=== PATIENT | female | born 1955 | race Caucasian/White ===

== ENCOUNTER → 2016-08-07 | Outpatient (CLI) | payer BC ==
[~2016-08-07] MED LIST: ASPI-428 PO; ASPI-461 PO; ATOR-26 PO; ATR25 PO; B-CO1TAB73 PO; BUSP15TA70 PO; CARI350T28 PO; CHOL1000 PO; CLC100 PO; DICL1GEL28 TOP; FERR325T51 PO; FLV1 PO; FURO-85 PO; GEMF600T3 PO; GLIP-197 PO; HYDR-3785 PO; HYDR-3983 PO; INSDGI SC; INSDGIPEN SC; LABE100T16 PO; LBT100 PO; LIDOCAINE 3% TOP; LSN40 PO; LSX40 PO; MISCCAP80 PO; NIFE30TA83 PO; NRV/5 PO; NVLGI/PEN SC; OMEP40CA PO; OMEP40CA41 PO; PREG1CAP36 PO; SERT-234 PO; TRAZ100T29 PO; VITA400C3 PO; VTMD PO; ZLF/100 PO; [UNRECOGNIZED DRUG - CODE] TOP; melatonin PO; novalog
[2016-08-07 18:25] LABS: CHOLESTEROL/HDL RATIO 3.1
[2016-08-08 06:26] LABS: ESTIMATED AVERAGE GLUCOSE 177 mg/dl; HA1C FLAG Normal (Normal)
== END | disposition home or self-care (01) ==
LOC: C.LABMFLN 07:33
PROVIDERS: ATTEND Family Medicine
DX: E11.9 Type 2 diabetes mellitus without complications (principal); E11.42 Type 2 diabetes mellitus with diabetic polyneuropathy; E55.9 Vitamin D deficiency, unspecified; D64.9 Anemia, unspecified; N18.5 Chronic kidney disease, stage 5

== ENCOUNTER → 2016-09-22 | Outpatient (CLI) | payer BC ==
[2016-09-22 18:12] LABS: BASO % 0.7 %; BASO ABS # 0.07 K/uL (0-0.2); COMPLETE YES; EOS % 7.8 %; HEMATOCRIT 29.4 % (37-47); IG% 0.2 %; LYMPH % 20.4 %; LYMPH ABS # 1.94 K/uL (1.2-3.4); MEAN CELL VOLUME 85.7 fL (80-100); MEAN CORPUSCULAR HEMOGLOBIN 28.9 pg (25-34); MEAN CORPUSCULAR HGB CONC 33.7 g/dl (32-36); MONO % 7.5 %; NEUT % 63.4 %; PLATELET COUNT 303 K/uL (130-400); RED BLOOD COUNT 3.43 M/uL (4.2-5.4); WHITE BLOOD COUNT 9.49 K/uL (4.8-10.8)
[2016-09-22 19:07] LABS: ALB/GLOB RATIO 0.6 (0.9-2); ALKALINE PHOSPHATASE 93 U/L (45-117); ALT/SGPT 14 U/L (12-78); AST/SGOT 33 U/L (15-37); BLOOD UREA NITROGEN 48 mg/dl (7-18); BUN/CREATININE RATIO 9.2 (10-20); CALCIUM 8.3 mg/dl (8.5-10.1); CARBON DIOXIDE 29 mmol/L (21-32); CHLORIDE 101 mmol/L (98-107); GLUCOSE 88 mg/dl (70-99); POTASSIUM 4.5 mmol/L (3.5-5.1); SODIUM 137 mmol/L (136-145)
== END | disposition home or self-care (01) ==
LOC: C.LABMFLN 09:15
PROVIDERS: ATTEND Family Medicine
DX: T85.71XA Infection and inflammatory reaction due to peritoneal dialysis catheter, initial encounter (principal); K65.9 Peritonitis, unspecified; Y84.1 Kidney dialysis as the cause of abnormal reaction of the patient, or of later complication, without mention of misadventure at the time of the procedure

== ENCOUNTER → 2016-09-29 | Outpatient (CLI) | payer BC | END | disposition home or self-care (01) | LOC: C.LABMFLN 10:59 | PROVIDERS: ATTEND Family Medicine | DX: R19.7 Diarrhea, unspecified (principal) ==

== ENCOUNTER 2016-10-03 17:50 | Emergency (ER) | payer BC ==
[~2016-10-03] VITALS: Ht 170.2 cm; Wt 83.0 kg
[~2016-10-03 17:50] MED LIST changes: -ASPI-461 PO; -ATR25 PO; -B-CO1TAB73 PO; -CHOL1000 PO; -FLV1 PO; -INSDGIPEN SC; -LBT100 PO; -LSN40 PO; -LSX40 PO; -NRV/5 PO; -NVLGI/PEN SC; -OMEP40CA41 PO; -VITA400C3 PO; -VTMD PO; -ZLF/100 PO
[2016-10-03 18:04] VITALS: TEMP 36.8; Ht 170.2 cm; Wt 83.0 kg
[2016-10-03] MEDS ORDERED: HYDROmorphone INJ 0.5 MG/0.5 ML SYR IV STA ×2 (19:17→21:05)
--- NOTE | 2016-10-03 19:22 | EMERGENCY ROOM VISIT NOTE ---
History Report prepared by Khushbu: Alicja Anderson Under the Supervision of: Dr. Cata Rowan D.O. First contact with patient: 19:01 Chief Complaint: FLANK PAIN Stated Complaint: PAIN IN LEFT SIDE History of Present Illness The patient is a 61 year old female who presents to the Emergency Room with complaints of persistent left sided flank pain that started a few days ago but worsened this morning. She rates this pain a 7/10 in intensity. Associated symptoms include abdominal pain, headaches, and nausea. The patient receives peritoneal dialysis at home. She is currently prescribed a two week course of antibiotics to treat peritonitis. The patient was first evaluated in the [facility] where she was diagnosed with this infection. She was told to come back to the ED if her pain worsens. The patient also has a history of lithotripsy and stent placement secondary to kidney stones. She adds that she developed a blood clot by her kidney as the result of the stent placement procedure. The patient denies fevers, chills, chest pain, shortness of breath, or any additional associated symptoms. States this feels different from her peritonitis previously. No v/d. Still makes some small amount of urine. No change in color/odor. No hematuria. Source of History: patient Onset: a few days ago, worsened this morning Position: abdomen Symptom Intensity: 7/10 Timing: other (Persistent ) Modifying Factors (Worsening): other (None) Associated Symptoms: + abdominal pain, + headache, + nausea, No SOB, No chest pain, No chills, No fevers Review of Systems See HPI for pertinent positives & negatives. A total of 10 systems reviewed and were otherwise negative. Past Medical & Surgical Medical Problems: (1) Arthritis (2) Bronchitis (3) Diabetes (4) End stage renal disease (5) H/O blood clots (6) Kidney stone Surgical Problems: (1) H/O: hysterectomy (2) Hx of lithotripsy Family History FH: cancer FH: diabetes mellitus FH: heart disease FH: hypertension FH: kidney disease Social History Smoking Status: Former Smoker Alcohol Use: none Drug Use: none Marital Status: Housing Status: lives with significant other Occupation Status: unemployed Current/Historical Medications Scheduled Amlodipine Besylate (Amlodipine Besylate), 1 TAB PO DAILY Aspirin (Aspirin), 1 TAB PO DAILY Atorvastatin (Lipitor), 80 MG PO HS B-Complex W/ C & Folic Acid (Renal Vitamin 0.8 mg), 1 TAB PO DAILY Carisoprodol (Soma), 350 MG PO TID Ergocalciferol (Vitamin D), 1 TAB PO [id number] Folic Acid (Folic Acid), 1 TAB PO DAILY Furosemide (Furosemide), 1 TAB PO DAILY Glipizide (Glipizide Er), 1 TAB PO BID Hydrocodone/Acetaminophen 7.5MG/325MG ([place] 7.5MG/325MG), 2 TABS PO Q6H Hydroxyzine HCl (Hydroxyzine HCl), 1 TAB PO Q6H Insulin Glargine (Lantus Solostar), 35 UNITS SC HS Labetalol HCl (Labetalol HCl), 2 TAB PO BID Lisinopril (Lisinopril), 1 TAB PO DAILY Omeprazole (Prilosec), 1 TAB PO DAILY Pregabalin (Lyrica), 25 MG PO BID Probiotic Product (Probiotic), 1 CAP PO DAILY Sertraline HCl (Sertraline HCl), 2 TAB PO DAILY Trazodone Hcl (Trazodone), 200 MG PO HS PRN Vitamin E (Vitamin E 400 Iu), 400 INTER.UNIT PO DAILY Miscellaneous Medications Insulin Aspart (Novolog Flexpen), 1 DOSE SC Allergies Coded Allergies: Sulfa Antibiotics (Verified Allergy, Intermediate, BLISTERS IN MOUTH, 10/03) Tetracycline (Verified Allergy, Intermediate, BLISTERS IN MOUTH, 10/03/16) Adhesives (Verified Allergy, Mild, RASH, 10/03/16) Doxycycline (Verified Allergy, Unknown, mouth blisters, 10/03/16) Latex1 -Allergic Contact Dermititis (Verified Allergy, Unknown, UNKNOWN, ) PER PREOP ABX ORDER Physical Exam Vital Signs Date Time Temp Pulse Resp B/P Pulse Ox O2 Delivery O2 Flow Rate FiO2 10/03/16 21:22 74 18 167/70 99 10/03/16 20:36 73 18 159/78 98 Room Air 10/03/16 19:55 82 18 182/81 97 Room Air 10/03/16 18:04 36.8 90 16 130/68 96 Room Air Physical Exam GENERAL: alert, well appearing, well nourished, no distress, non-toxic EYE EXAM: normal conjunctiva, PERRL and EOM's grossly intact OROPHARYNX: no exudate, no erythema, lips, buccal mucosa, and tongue normal and mucous membranes are moist NECK: supple, no nuchal rigidity, no adenopathy, non-tender LUNGS: Clear to auscultation. Normal chest wall mechanics HEART: no murmurs, S1 normal and S2 normal ABDOMEN: PD catheter on left side of abdomen without drainage, erythema, or bleeding. abdomen soft, non-tender, normo-active bowel sounds, no masses, no rebound or guarding. BACK: Left flank pain noted. Back is symmetrical on inspection and there is no deformity, no CVA tenderness. SKIN: no rashes and no bruising UPPER EXTREMITIES: upper extremities are grossly normal. LOWER EXTREMITIES: No pitting edema. NEURO EXAM: Normal sensorium, cranial nerves II-XII [grossly] intact, normal speech, no [gross] weakness of arms, no [gross] weakness of legs. Medical Decision & Procedures ER Provider Diagnostic Interpretation: Xray results per the radiologist and my interpretation. Other results have been interpreted by the radiologist and reviewed by me. CHEST ONE VIEW PORTABLE CLINICAL HISTORY: left flank pain pain COMPARISON STUDY: 05/16/2013 FINDINGS: Moderate cardiac megaly. Lungs are clear. Diaphragms smooth. IMPRESSION: Moderate cardiomegaly. Otherwise negative study Electronically signed by: Garry Ann M.D. 10/03/2016 8:24 PM Dictated Date/Time: 10/03/2016 8:23 PM ABDOMEN AND PELVIS CT WITHOUT CONTRAST CT DOSE: 516.40 mGy.cm HISTORY: Flank pain left flank pain TECHNIQUE: Multiaxial CT images of the abdomen and pelvis were performed without contrast. COMPARISON STUDY: 03/01/2016 FINDINGS: Lung bases are clear. Trace amount of intraperitoneal air most likely the bases of the patient's dialysis catheter. Liver appears be uniform. Prior cholecystectomy. Spleen is slightly prominent but is stable from the prior exam. Fatty replacement of the pancreas. Cortical scarring of the kidneys bilaterally. Fullness of the right renal collecting system on the prior study is no longer appreciated. Bilateral renal arterial stents are present. Postoperative changes to the lumbar spine are stable. Bowel pattern is nonobstructive. There is no evidence for an obstructing urinary tract calculus. Bowel pattern again is unremarkable. There is component of mild chronic sigmoid diverticulosis. IMPRESSION: 1. Mild chronic sigmoid diverticulosis. 2. No evidence for diverticulitis. 3. Chronic and postoperative changes unaltered from the prior study. Electronically signed by: Garry Ann M.D. 10/03/2016 8:21 PM Dictated Date/Time: 10/03/2016 8:14 PM Laboratory Results 10/03/16 19:36 Red Blood Count 3.08, Mean Corpuscular Volume 88.0, Mean Corpuscular Hemoglobin 28.2, Mean Corpuscular Hemoglobin Concent 32.1, Mean Platelet Volume 9.2, Neutrophils (%) (Auto) 56.2, Lymphocytes (%) (Auto) 26.9, Monocytes (%) (Auto) 7.4, Eosinophils (%) (Auto) 8.1, Basophils (%) (Auto) 1.0, Neutrophils # (Auto) 4.03, Lymphocytes # (Auto) 1.93, Monocytes # (Auto) 0.53, Eosinophils # (Auto) 0.58, Basophils # (Auto) 0.07 10/03/16 19:36 Test 10/03/16 19:30 10/03/16 19:36 Urine Color YELLOW Urine Appearance CLEAR (CLEAR) Urine pH 6.5 (4.5-7.5) Urine Specific [place] 1.021 (1.000-1.030) Urine Protein 1+ (NEG) Urine Glucose (UA) 2+ (NEG) Urine Ketones NEG (NEG) Urine Occult Blood NEG (NEG) Urine Nitrite NEG (NEG) Urine Bilirubin NEG (NEG) Urine Urobilinogen NEG (NEG) Urine Leukocyte Esterase TRACE (NEG) Urine WBC (Auto) 1-5 /hpf (0-5) Urine RBC (Auto) 0-4 /hpf (0-4) Urine Hyaline Casts (Auto) 0 /lpf (0-5) Urine Epithelial Cells (Auto) >30 /lpf (0-5) Urine Bacteria (Auto) NEG (NEG) White Blood Count 7.17 K/uL (4.8-10.8) Red Blood Count 3.08 M/uL (4.2-5.4) Hemoglobin 8.7 g/dL (12.0-16.0) Hematocrit 27.1 % (37-47) Mean Corpuscular Volume 88.0 fL (80-100) Mean Corpuscular Hemoglobin 28.2 pg (25-34) Mean Corpuscular Hemoglobin Concent 32.1 g/dl (32-36) Platelet Count 271 K/uL (130-400) Mean Platelet Volume 9.2 fL (7.4-10.4) Neutrophils (%) (Auto) 56.2 % Lymphocytes (%) (Auto) 26.9 % Monocytes (%) (Auto) 7.4 % Eosinophils (%) (Auto) 8.1 % Basophils (%) (Auto) 1.0 % Neutrophils # (Auto) 4.03 K/uL (1.4-6.5) Lymphocytes # (Auto) 1.93 K/uL (1.2-3.4) Monocytes # (Auto) 0.53 K/uL (0.11-0.59) Eosinophils # (Auto) 0.58 K/uL (0-0.5) Basophils # (Auto) 0.07 K/uL (0-0.2) RDW Standard Deviation 48.2 fL (36.4-46.3) RDW Coefficient of Variation 15.2 % (11.5-14.5) Immature Granulocyte % (Auto) 0.4 % Immature Granulocyte # (Auto) 0.03 K/uL (0.00-0.02) Nucleated RBC Absolute Count (auto) 0.02 K/uL (0-0) Nucleated Red Blood Cells % 0.2 % Polychromasia 1+ Anisocytosis PRESENT Anion Gap 9.0 mmol/L (3-11) Est Creatinine Clear Calc Drug Dose 20.7 ml/min Estimated GFR () 17.4 Estimated GFR (Non- 15.0 BUN/Creatinine Ratio 17.7 (10-20) Calcium Level 8.2 mg/dl (8.5-10.1) Total Bilirubin 0.2 mg/dl (0.2-1) Aspartate Amino Transf (AST/SGOT) 22 U/L (15-37) Alanine Aminotransferase (ALT/SGPT) 12 U/L (12-78) Alkaline Phosphatase 63 U/L (45-117) Total Protein 7.4 gm/dl (6.4-8.2) Albumin 3.2 gm/dl (3.4-5.0) Globulin 4.2 gm/dl (2.5-4.0) Albumin/Globulin Ratio 0.8 (0.9-2) Date/Time Source Procedure Growth Status 10/03/16 19:30 Urine , Clean Catch Urine Culture - Final MORE THAN THREE TYPES OF ORGANISMS CT... Complete Laboratory results per my review. Medications Administered Medications (Trade) Dose Ordered Sig/April Route Start Time Stop Time Status Last Admin Dose Admin Hydromorphone HCl (Dilaudid Inj) 0.5 mg NOW STAT IV 10/03/16 19:17 10/03/16 19:20 DC 10/03/16 19:52 0.5 MG Hydromorphone HCl (Dilaudid Inj) 1 mg NOW STAT IV 10/03/16 21:05 10/03/16 21:06 DC 10/03/16 21:10 1 MG ED Course 1905: The patient was evaluated in room C7. A complete history and physical exam was performed. 1916: Ordered Dilaudid Injection 0.5 mg IV. 2056: Upon reevaluation, the patient is still experiencing mild amounts of pain but is feeling better overall. I updated the patient on tonight's results. 2104: Ordered Dilaudid Injection 1 mg IV. 2105: I reviewed the patient's case with Dr. Sanabria (Nephrology). She recommends the patient follow up closely in the outpatient office. Medical Decision Differential diagnoses includes but is not limited to gastritis, peptic ulcer disease, GERD, gallbladder disease, pancreatitis, small bowel obstruction, acute coronary syndrome, pericarditis, ischemic bowel, irritable bowel disease, irritable bowel syndrome, appendicitis, diverticulitis, malignancy, hernia, urinary tract infection, torsion, /ectopic , perforation, trauma, infectious. Pt well appearing throughout. Has chronic pain meds at home. No change in labs , CKD noted without electrolyte abnormalities. Doubt bacteremia/sepsis. No obstruction or other anatomic abnormalities noted. VS stable. Doubt cardiac or pulmonary pathology. No evidence of sx of acute Gi pathology. Pt aware of all results. Discussed with nephrology. Agrees with plan for outpt f/u. Continued PD at home. No other changes at this time. Discussed sx to watch/ return for, she verbalized understanding and was agreeable with plan. Consults Time Called: [phone] Consulting Physician: Dr. Sanabria (Nephrology) Returned Call: [phone] I reviewed the patient's case with Dr. Sanabria (Nephrology). She recommends the patient follow up closely in the outpatient office. Impression Primary Impression: Left flank pain Additional Impression: Chronic kidney disease Scribe Attestation The scribe's documentation has been prepared under my direction and personally reviewed by me in its entirety. I confirm that the note above accurately reflects all work, treatment, procedures, and medical decision making performed by me. Departure Information Dispostion Home / Self-Care Referrals Nando Meredith M.D. (PCP) Forms HOME CARE DOCUMENTATION FORM, IMPORTANT VISIT INFORMATION Patient Instructions My [facility] Additional Instructions Please call and follow-up with your family doctor on Thursday and call your kidney doctor to follow-up also. Continue your regular medicines and dialysis per normal. If you have any worsening pain, develop fevers, vomiting, chest pain, trouble breathing, diarrhea, your catheter isn't functioning normally, or you have any other concerns, please return to the emergency room immediately. Problem Qualifiers Additional Impression: Chronic kidney disease Chronic kidney disease stage: unspecified stage Qualified Codes: N18.9 - Chronic kidney disease, unspecified
[2016-10-03 20:10] LABS: BASO ABS # 0.07 K/uL (0-0.2); EOS % 8.1 %; HEMATOCRIT 27.1 % (37-47); IG% 0.4 %; LYMPH % 26.9 %; LYMPH ABS # 1.93 K/uL (1.2-3.4); MEAN CORPUSCULAR HEMOGLOBIN 28.2 pg (25-34); MEAN CORPUSCULAR HGB CONC 32.1 g/dl (32-36); MEAN PLATELET VOLUME 9.2 fL (7.4-10.4); MONO % 7.4 %; NEUT % 56.2 %; PLATELET COUNT 271 K/uL (130-400); RED BLOOD COUNT 3.08 M/uL (4.2-5.4); WHITE BLOOD COUNT 7.17 K/uL (4.8-10.8)
--- NOTE | 2016-10-03 20:23 | DIAGNOSTIC IMAGING REPORT ---
ABDOMEN AND PELVIS CT WITHOUT CONTRAST CT DOSE: 516.40 mGy.cm HISTORY: Flank pain left flank pain TECHNIQUE: Multiaxial CT images of the abdomen and pelvis were performed without contrast. COMPARISON STUDY: 03/01/2016 FINDINGS: Lung bases are clear. Trace amount of intraperitoneal air most likely the bases of the patient's dialysis catheter. Liver appears be uniform. Prior cholecystectomy. Spleen is slightly prominent but is stable from the prior exam. Fatty replacement of the pancreas. Cortical scarring of the kidneys bilaterally. Fullness of the right renal collecting system on the prior study is no longer appreciated. Bilateral renal arterial stents are present. Postoperative changes to the lumbar spine are stable. Bowel pattern is nonobstructive. There is no evidence for an obstructing urinary tract calculus. Bowel pattern again is unremarkable. There is component of mild chronic sigmoid diverticulosis. IMPRESSION: 1. Mild chronic sigmoid diverticulosis. 2. No evidence for diverticulitis. 3. Chronic and postoperative changes unaltered from the prior study. Electronically signed by: Garry Ann M.D. 10/03/2016 8:21 PM Dictated Date/Time: 10/03/2016 8:14 PM
[2016-10-03 20:25] LABS: URINE APPEARANCE CLEAR (CLEAR); URINE BILIRUBIN NEG (NEG); URINE COLOR YELLOW; URINE EPITHELIAL CELL AUTO >30 /lpf (0-5); URINE NITRITE NEG (NEG); URINE PH 6.5 (4.5-7.5); URINE SPECIFIC GRAVITY 1.021 (1.000-1.030); UROBILINOGEN NEG (NEG); ZZUR CULT IF INDIC CLEAN CATCH NO
--- NOTE | 2016-10-03 20:26 | DIAGNOSTIC IMAGING REPORT ---
CHEST ONE VIEW PORTABLE CLINICAL HISTORY: left flank pain pain COMPARISON STUDY: 05/16/2013 FINDINGS: Moderate cardiac megaly. Lungs are clear. Diaphragms smooth. IMPRESSION: Moderate cardiomegaly. Otherwise negative study Electronically signed by: Garry Ann M.D. 10/03/2016 8:24 PM Dictated Date/Time: 10/03/2016 8:23 PM
[2016-10-03 20:27] LABS: BUN/CREATININE RATIO 17.7 (10-20); CALCIUM 8.2 mg/dl (8.5-10.1); CREATININE 3.2 mg/dl (0.60-1.20); POTASSIUM 4.1 mmol/L (3.5-5.1)
[2016-10-03 20:29] LABS: MANUAL MICROSCOPIC REQUIRED? NO; REVIEW REQ? NO
[2016-10-03 20:30] LABS: ALB/GLOB RATIO 0.8 (0.9-2)
[2016-10-03 20:32] LABS: ANISOCYTOSIS PRESENT; COMPLETE YES; POLYCHROMASIA 1+
[2016-10-03] MEDS ORDERED: OMEP40CA41 PO (21:00)
[2016-10-03] MEDS ORDERED: NVLGI/PEN SC (21:00)
[2016-10-03] MEDS ORDERED: LBT100 PO (21:00)
[2016-10-03] MEDS ORDERED: VTMD PO (21:00)
[2016-10-03] MEDS ORDERED: INSDGIPEN SC (21:00)
[2016-10-03] MEDS ORDERED: FLV1 PO (21:00)
[2016-10-03] MEDS ORDERED: LSN40 PO (21:00)
[2016-10-03] MEDS ORDERED: NRV/5 PO (21:00)
[2016-10-03] MEDS ORDERED: ZLF/100 PO (21:00)
[2016-10-03] MEDS ORDERED: LSX40 PO (21:00)
[2016-10-03] MEDS ORDERED: ASPI-461 PO (21:00)
[2016-10-03] MEDS ORDERED: ATR25 PO (21:00)
[2016-10-03] MEDS ORDERED: CHOL1000 PO (21:03)
[2016-10-03] MEDS ORDERED: B-CO1TAB73 PO (21:03)
[2016-10-03] MEDS ORDERED: HYDR-3983 PO (21:03)
[2016-10-03] MEDS ORDERED: VITA400C3 PO (21:03)
[2016-10-03 21:22] VITALS: BP 167/70; PULSE 74; O2SAT 99
== END 2016-10-03 21:23 | disposition home or self-care (01) ==
LOC: C.EDB 17:51 → C.EDC 21:23
DX: R10.9 Unspecified abdominal pain (principal); N18.6 End stage renal disease; R51 Headache; R11.0 Nausea; Z99.2 Dependence on renal dialysis; E11.9 Type 2 diabetes mellitus without complications; M19.90 Unspecified osteoarthritis, unspecified site; Z79.4 Long term (current) use of insulin; Z79.82 Long term (current) use of aspirin; Z79.899 Other long term (current) drug therapy; Z86.2 Personal history of diseases of the blood and blood-forming organs and certain disorders involving the immune mechanism; Z87.442 Personal history of urinary calculi; Z87.891 Personal history of nicotine dependence; Z82.49 Family history of ischemic heart disease and other diseases of the circulatory system; Z83.3 Family history of diabetes mellitus; Z84.1 Family history of disorders of kidney and ureter

== ENCOUNTER → 2017-01-05 | Outpatient (CLI) | payer BC ==
[~2017-01-05] MED LIST changes: -ASPI-428 PO; +ASPI-461 PO; +ATR25 PO; +B-CO1TAB73 PO; -BUSP15TA70 PO; -CLC100 PO; -DICL1GEL28 TOP; -FERR325T51 PO; +FLV1 PO; -FURO-85 PO; -GEMF600T3 PO; -HYDR-3785 PO; -INSDGI SC; +INSDGIPEN SC; -LABE100T16 PO; +LBT100 PO; -LIDOCAINE 3% TOP; +LSN40 PO; +LSX40 PO; -NIFE30TA83 PO; +NRV/5 PO; +NVLGI/PEN SC; -OMEP40CA PO; +OMEP40CA41 PO; -SERT-234 PO; +VITA400C3 PO; +VTMD PO; +ZLF/100 PO; -[UNRECOGNIZED DRUG - CODE] TOP; -melatonin PO; -novalog
[2017-01-05 18:16] LABS: ALT/SGPT 25 U/L (12-78); TRIGLYCERIDES 246 mg/dl (0-150)
[2017-01-06 06:08] LABS: ESTIMATED AVERAGE GLUCOSE 166 mg/dl; HA1C FLAG Normal (Normal)
== END | disposition home or self-care (01) ==
LOC: C.LABMFLN 13:43
PROVIDERS: ATTEND Family Medicine
DX: E78.5 Hyperlipidemia, unspecified (principal); E11.9 Type 2 diabetes mellitus without complications; N18.5 Chronic kidney disease, stage 5

== ENCOUNTER → 2017-04-02 | Outpatient (CLI) | payer BC ==
[2017-04-02 18:19] LABS: URINE APPEARANCE TURBID (CLEAR); URINE BILIRUBIN NEG (NEG); URINE COLOR YELLOW; URINE EPITHELIAL CELL AUTO >30 /lpf (0-5); URINE NITRITE POS (NEG); URINE SPECIFIC GRAVITY 1.017 (1.000-1.030); UROBILINOGEN NEG (NEG); ZZUR CULT IF INDIC CLEAN CATCH YES
[2017-04-02 18:23] LABS: MANUAL MICROSCOPIC REQUIRED? NO; REVIEW REQ? NO
== END | disposition home or self-care (01) ==
LOC: C.LABMFLN 16:41
PROVIDERS: ATTEND Family Medicine
DX: R10.9 Unspecified abdominal pain (principal)

== ENCOUNTER 2017-05-31 13:01 | Inpatient (IN) | payer BC, OTHER ==
[~2017-05-31] VITALS: Ht 172.7 cm; Wt 81.6 kg
[2017-05-31 15:30] VITALS: BP 111/68; PULSE 65; TEMP 36.4; O2SAT 97; BMI 26.4
[2017-05-31] MEDS ORDERED: ACETAMINOPHEN 325 MG TAB PO PRN (16:30)
[2017-05-31] MEDS ORDERED: ONDANSETRON INJ 2 MG/ML 2 ML VIAL IV PRN (16:30)
[2017-05-31 18:20] LABS: HEMATOCRIT 31.1 % (37-47); HEMOGLOBIN 10.2 g/dL (12.0-16.0); MEAN CELL VOLUME 88.6 fL (80-100); MEAN CORPUSCULAR HEMOGLOBIN 29.1 pg (25-34); MEAN CORPUSCULAR HGB CONC 32.8 g/dl (32-36); MEAN PLATELET VOLUME 9.6 fL (7.4-10.4); PLATELET COUNT 243 K/uL (130-400); RED CELL DISTRIBUTION WIDTH CV 15.2 % (11.5-14.5); RED CELL DISTRIBUTION WIDTH SD 49.8 fL (36.4-46.3); WHITE BLOOD COUNT 6.43 K/uL (4.8-10.8)
[2017-05-31 18:32] LABS: PTT PATIENT 24.8 SECONDS (21.0-31.0)
[2017-05-31] MEDS ORDERED: MoRPHine SULFATE 4 MG/ML 1 ML CARP\\VIAL IV PRN (19:45)
[2017-05-31 20:00] VITALS: O2SAT 97
--- NOTE | 2017-05-31 20:17 | Nephrology Consultation ---
Nephrology Consultation Date & Providers Date of Consultation: May 31, 2017. Primary Care Provider: Nando Meredith M.D. Referring Provider: Reason for Consultation ESRD on NCCPD History of Present Illness Mrs. Rodriguez is a 62 year old white female who is seen at the request of Dr. Lofton to provide nocturnal peritoneal dialysis during her hospitalization. Medical records in the EMR were reviewed and are summarized as follows: Mrs. Rodriguez has a longstanding h/o arterial HTN. Evaluation revealed the presence of JASEN. In 02/27 she underwent bilateral renal artery stenting. This was complicated by L subcapsular hematoma. Her kidneys were notably atrophic at that time and she developed progressive renal insufficiency. In 01/28 she underwent CAPD catheter insertion and creation of a L upper arm AVF by Dr. Quigley in [place]. She later required transposition of the venous limb of her AVF. Since 03/01 Mrs. Rodriguez has been on NCCPD therapy (EDW 79.5 kg, 4 exchanges/night, 90 min dwell time, 2500 cc fill volume, 2.5% delflex). Her [place] Worker is Dr. Sanabria. She denies any complications with her PD regimen. Over the last five days Mrs. Rodriguez has been experiencing extreme weakness. She has fallen several times. She denies fever, angina, palpitations or seizure. She reports that her SBP at home has been 120 - 140 mm HG. Her blood sugar however has been very labile ranging anywhere from 300 down to 50. Mrs. Rodriguez was admitted to [facility] yesterday for evaluation. Her transfer set was changed and she was dialyzed while there. This morning she was seen by Dr. Aguila and found to have a weak thrill from her AVF. She was subsequently transferred to [facility] for vascular surgery evaluation in the am. Past Medical/Surgical History Medical: # ESRD on NCCPD. Active on [facility] list at [facility] # AODM # HTN # JASEN s/p bilateral [employer] ANALYST w/ stenting 02/27 # ASCVD - cath 05/30 with < 30% stenosis in multiple vessels Surgical: # L arm brachiocephalic AVF 01/28 # Transposition of venous limb AVF # PD catheter # Bilateral renal artery stenting Allergies Coded Allergies: Sulfa Antibiotics (Verified Allergy, Intermediate, BLISTERS IN MOUTH, 10/03) Tetracycline (Verified Allergy, Intermediate, BLISTERS IN MOUTH, 10/03/16) Adhesives (Verified Allergy, Mild, RASH, 10/03/16) Doxycycline (Verified Allergy, Unknown, mouth blisters, 10/03/16) Latex1 -Allergic Contact Dermititis (Verified Allergy, Unknown, UNKNOWN, ) PER PREOP ABX ORDER Inpatient Medications Current Inpatient Medications Medications (Trade) Dose Ordered Sig/April Route Start Time Stop Time Status Last Admin Dose Admin Heparin Sodium (Porcine) (Heparin Sq 5000 Unit/0.5ml) 5,000 unit Q8H SQ 05/31/17 20:30 06/30/17 20:29 Acetaminophen (Tylenol Tab) 650 mg Q4H PRN PO 05/31/17 16:30 06/30/17 16:29 Ondansetron HCl (Zofran Inj) 4 mg Q6H PRN IV 05/31/17 16:30 06/30/17 16:29 Insulin Aspart (novoLOG ASPART) SLIDING SCALE G... ACHS SC 05/31/17 21:00 06/30/17 20:59 Acetaminophen/ Hydrocodone Bitart ([place] 7.5/325 Tab) 1 tab Q4 PRN PO 05/31/17 18:30 06/14/17 18:29 Amlodipine Besylate (Norvasc Tab) 5 mg DAILY PO 06/01/17 09:00 07/01/17 08:59 Aspirin (Ecotrin Tab) 81 mg DAILY PO 06/01/17 09:00 07/01/17 08:59 Atorvastatin Calcium (Lipitor Tab) 80 mg HS PO 05/31/17 21:00 06/30/17 20:59 Carisoprodol (Soma Tab) 350 mg TID PO 05/31/17 21:00 06/30/17 20:59 Folic Acid (Folvite Tab) 1 mg DAILY PO 06/01/17 09:00 07/01/17 08:59 Furosemide (Lasix Tab) 40 mg DAILY PO 06/01/17 09:00 07/01/17 08:59 Hydroxyzine HCl (Vistaril Tab) 25 mg Q6H PO 05/31/17 19:00 06/30/17 18:59 Insulin Glargine (Lantus Solostar Pen) 35 units HS SC 05/31/17 21:00 06/30/17 20:59 Labetalol HCl (Normodyne Tab) 200 mg BID PO 05/31/17 21:00 06/30/17 20:59 Lisinopril (Zestril Tab) 40 mg DAILY PO 06/01/17 09:00 07/01/17 08:59 Pregabalin (Lyrica Cap) 25 mg BID PO 05/31/17 21:00 06/30/17 20:59 Sertraline HCl (Zoloft Tab) 200 mg DAILY PO 06/01/17 09:00 07/01/17 08:59 UNV Trazodone HCl (Desyrel Tab) 200 mg HS PO 05/31/17 21:00 06/30/17 20:59 UNV [id number] Acetate (Vitamin E Cap) 400 interunit DAILY PO 06/01/17 09:00 07/01/17 08:59 UNV Non-Formulary Medication (Omeprazole (Prilosec)) 1 tab DAILY PO 06/01/17 09:00 07/01/17 08:59 UNV Fentanyl (Duragesic Patch) 12 mcg Q72H TD 05/31/17 19:30 06/14/17 19:29 UNV Fentanyl (Duragesic Patch) 25 mcg Q72H TD 05/31/17 19:30 06/14/17 19:29 UNV Miscellaneous (Fentanyl Patch Remove & Waste) 1 ea Q3D N/A 06/03/17 19:30 07/03/17 19:29 UNV Miscellaneous Information (Check Fentanyl Patch Placement) 1 ea QS N/A 06/01/17 00:00 07/01/17 00:00 UNV Miscellaneous (Fentanyl Patch Remove & Waste) 1 ea Q3D N/A 06/03/17 19:30 07/03/17 19:29 UNV Miscellaneous Information (Check Fentanyl Patch Placement) 1 ea QS N/A 06/01/17 00:00 07/01/17 00:00 UNV Morphine Sulfate (MoRPHine SULFATE INJ) 4 mg Q4 PRN IV 05/31/17 19:45 06/14/17 19:44 UNV Morphine Sulfate (MoRPHine SULFATE INJ) 2 mg Q4 PRN IV 05/31/17 19:45 06/14/17 19:44 UNV Family History FH: cancer FH: diabetes mellitus FH: heart disease FH: hypertension FH: kidney disease Negative for CKD / ESRD Social History Smoking Status: Former Smoker Drug Use: none Marital Status: Occupation: unemployed . Resides in [place], [place]. Disabled . Former smoker (quit 5 years ago). Review of Systems Constitutional: No fever Respiratory: No cough Cardiovascular: No chest pain Abdomen: No pain, No nausea, No vomiting Endocrine: + fatigue A complete review of systems was performed. Pertinent positives are noted above. All other systems are negative. Physical Exam Date Time Temp Pulse Resp B/P (MAP) Pulse Ox O2 Delivery O2 Flow Rate FiO2 05/31/17 16:00 Room Air 05/31/17 15:30 36.4 65 18 111/68 97 Room Air General Appearance: no apparent distress Head: normocephalic, atraumatic Eyes: PERRL, EOMI Neck: supple, no carotid bruits Respiratory/Chest: lungs clear, no respiratory distress Cardiovascular: regular rate, rhythm, no murmur Abdomen/GI: normal bowel sounds, non tender, soft, + pertinent finding (PD catheter w/ clean dry dressing in place) Extremities/Musculoskelatal: no calf tenderness, no pedal edema Neurologic/Psych: alert, oriented x 3 Laboratory Results Last 24 Hours Test 05/31/17 16:35 05/31/17 17:49 Bedside Glucose 174 mg/dl White Blood Count 6.43 K/uL Red Blood Count 3.51 M/uL Hemoglobin 10.2 g/dL Hematocrit 31.1 % Mean Corpuscular Volume 88.6 fL Mean Corpuscular Hemoglobin 29.1 pg Mean Corpuscular Hemoglobin Concent 32.8 g/dl RDW Standard Deviation 49.8 fL RDW Coefficient of Variation 15.2 % Platelet Count 243 K/uL Mean Platelet Volume 9.6 fL Prothrombin Time 10.5 SECONDS Prothromb Time International Ratio 1.0 Activated Partial Thromboplast Time 24.8 SECONDS Partial Thromboplastin Ratio 1.0 Impression # Weakness w/ recurrent fall # Hemodynamically stable and 2 kg above dry weight at this time # ESRD due to vascular disease and HTN on NCCPD # L upper arm AVF with weak thrill / bruit # AODM # HTN # h/o ASCVD\ # Former smoker Recommendations END STAGE RENAL DISEASE: -- Will provide NCCPD therapy tonight according to chronic outpatient orders -- Patient is 2 kg above dry wt and hemodynamically stable. Will use 2.5% delflex -- Obtain PRP in am VASCULAR ACCESS: -- I have spoken w/ Dr. Mclaughlin this evening. He will assess patient's access in am HYPERTENSION: -- Will order orthostatic bp & pulse x 3 days -- Continue outpatient bp regimen of Labetalol, Amlodipine and Lisinopril DM: -- Monitor BSG. Patient reports h/o labile blood glucose
[2017-05-31 20:23] LABS: CALCIUM 8.2 mg/dl (8.5-10.1); POTASSIUM 4.9 mmol/L (3.5-5.1)
[2017-05-31 20:26] LABS: CREATININE 6.29 mg/dl (0.60-1.20)
[2017-05-31] MEDS: HYDROCODONE/ACETAMINOPHEN 7.5/325MG TAB PO PRN (20:44)
[2017-05-31 20:45] VITALS: BP 111/68; TEMP 37.1
[2017-05-31] MEDS: HEPARIN SOD 5000 UNIT/0.5 ML CARP SQ SCH (20:47)
[2017-05-31] MEDS ORDERED: GLUCOSE 40% GEL 15 GM TUBE PO PRN (21:15)
[2017-05-31] MEDS ORDERED: GLUCOSE 10 TABS/TUBE PO PRN (21:15)
[2017-05-31] MEDS ORDERED: DEXTROSE 50% 50 ML SYR IV PRN (21:15)
[2017-05-31] MEDS ORDERED: GLUCAGON FOR INJ 1 MG VIAL SQ PRN (21:15)
[2017-05-31] MEDS: hydrOXYzine HCL 25 MG TAB PO SCH (21:39)
[2017-05-31] MEDS: TRAZODONE HCL 100 MG TAB PO SCH (21:40)
[2017-05-31] MEDS: ATORVASTATIN 40 MG TAB PO SCH (21:40)
[2017-05-31] MEDS: LABETALOL HCL 100 MG TAB PO SCH (21:41)
[2017-05-31] MEDS: CARISOPRODOL 350 MG TAB PO SCH (21:41)
[2017-05-31] MEDS: PREGABALIN 25MG CAP PO SCH (21:44)
[2017-05-31] MEDS: INSULIN GLARGINE SOLOSTAR 100 UNITS/ML 3 ML PEN SC SCH (21:47)
[2017-05-31] MEDS: INSULIN ASPART 100 UNITS/ML 3 ML PEN SC SCH (21:47)
[2017-05-31] MEDS: MoRPHine SULFATE 2 MG/ML CARP IV PRN (21:55)
--- NOTE | 2017-05-31 22:33 | History and Physical ---
History & Physical Date & Time of Service: May 31, 2017 at 22:14 Chief Complaint: Av Fistula Failure Primary Care Physician: Nando Meredith M.D. History of Present Illness Source: patient, hospital records 62 yo female with a history of ESRD on peritoneal dialysis for the past 15 months, was transferred to [facility] from [place] because there was no thrill in her left UE fistula. She has the fistula in place in case she would get an infection with PD and she would need temporary HD. She says that she feels her left arm everyday for a thrill and she felt it two days ago and it was present. This morning, the patient did not have thrill. The solar installation foreman who was rounding on her discovered this as well and recommended transfer to [facility] to be seen by Dr. Mclaughlin who typically performs her vascular surgeries. The patient was admitted to [facility] the day before due to 8 separate falls the past week. The patient has never had frequent falls and typically is steady on her feet. She described the episodes of her legs just giving out. Sometimes she will have some warning signs of light headedness a few moments before she falls. The last time she fell she struck the back of her head. A CT was negative for hematoma. In the ED at [place] she was hypotensive and hypoglycemic. She was surprised by this because she never has these symptoms. She had been eating and drinking well. Performs peritoneal dialysis at her home every night, no changes in her regimen and no missed doses. She had no erythema around the skin of her PD, no abdominal pain, no fevers. After fluid resuscitation and glucose administration, her blood pressure and sugars stabilized in less than 24 hours. She did not have any falls while hospitalized. The hospitalist felt she was stable for discharge to home but then it was discovered that she did not have a thrill or bruit in her fistula so urgent transfer was recommended. Past Medical/Surgical History Peritoneal dialysis Severe lower back pain, chronic, s/p three separate surgeries HTN Depression Insomnia Medical Problems: (1) Arthritis Status: Chronic (2) Bronchitis Status: Resolved (3) Diabetes Status: Chronic (4) End stage renal disease Status: Chronic (5) H/O blood clots Status: Resolved (6) Kidney stone Status: Resolved Surgical Problems: (1) H/O: hysterectomy Status: Resolved (2) Hx of lithotripsy Status: Resolved Family History FH: cancer FH: diabetes mellitus FH: heart disease FH: hypertension FH: kidney disease Social History Smoking Status: Former Smoker Drug Use: none Marital Status: Occupational Status: unemployed Immunizations History of Influenza Vaccine: Yes Influenza Vaccine Date: Jun 14, 2013 History of Tetanus Vaccine?: Yes Tetanus Immunization Date: Jun 14, 2013 History of Pneumococcal: No History of Hepatitis B Vaccine: No Allergies Coded Allergies: Sulfa Antibiotics (Verified Allergy, Intermediate, BLISTERS IN MOUTH, 10/03) Tetracycline (Verified Allergy, Intermediate, BLISTERS IN MOUTH, 10/03/16) Adhesives (Verified Allergy, Mild, RASH, 10/03/16) Doxycycline (Verified Allergy, Unknown, mouth blisters, 10/03/16) Latex1 -Allergic Contact Dermititis (Verified Allergy, Unknown, UNKNOWN, ) PER PREOP ABX ORDER Home Medications Scheduled Amlodipine Besylate (Amlodipine Besylate), 1 TAB PO DAILY Aspirin (Aspirin), 1 TAB PO DAILY Atorvastatin (Lipitor), 80 MG PO HS B-Complex W/ C & Folic Acid (Renal Vitamin 0.8 mg), 1 TAB PO DAILY Carisoprodol (Soma), 350 MG PO TID Ergocalciferol (Vitamin D), 1 TAB PO [id number] Folic Acid (Folic Acid), 1 TAB PO DAILY Furosemide (Furosemide), 1 TAB PO DAILY Glipizide (Glipizide Er), 1 TAB PO BID Hydrocodone/Acetaminophen 7.5MG/325MG ([place] 7.5MG/325MG), 2 TABS PO Q6H Hydroxyzine HCl (Hydroxyzine HCl), 1 TAB PO Q6H Insulin Glargine (Lantus Solostar), 35 UNITS SC HS Labetalol HCl (Labetalol HCl), 2 TAB PO BID Lisinopril (Lisinopril), 1 TAB PO DAILY Omeprazole (Prilosec), 1 TAB PO DAILY Pregabalin (Lyrica), 25 MG PO BID Probiotic Product (Probiotic), 1 CAP PO DAILY Sertraline HCl (Sertraline HCl), 2 TAB PO DAILY Trazodone Hcl (Trazodone), 200 MG PO HS PRN Vitamin E (Vitamin E 400 Iu), 400 INTER.UNIT PO DAILY Miscellaneous Medications Insulin Aspart (Novolog Flexpen), 1 DOSE SC Review of Systems Constitutional: + weakness, + fatigue, No fever, No chills, No sweats, No weight loss, No problem reported Eyes: No worsening of vision, No eye pain, No redness, No discharge, No diplopia, No problem reported ENT: No hearing loss, No unusual epistaxis, No nasal symptoms, No sore throat, No tinnitus, No dental problems, No trouble swallowing, No problem reported Respiratory: No cough, No sputum, No wheezing, No shortness of breath, No dyspnea on exertion, No dyspnea at rest, No hemoptysis, No problem reported Cardiovascular: No chest pain, No orthopnea, No PND, No edema, No claudication , No palpitations, No problem reported Abdomen: No pain, No nausea, No vomiting, No diarrhea, No constipation, No GI bleeding, No problem reported Musculoskeletal: + joint pain (low back, chronic), + muscle pain (low back), No swelling, No calf pain, No problem reported Genitourinary - Female: No dysuria, No urinary frequency, No urinary urgency, No urinary incontinence, No urinary retention, No hematuria Neurologic: + weakness, + problem reported (frequent falls at home), No memory loss, No paralysis, No numbness/tingling, No vertigo, No balance problems Psychiatric: + depression symptoms, + insomnia, No anhedonism, No anxiety, No substance abuse, No problem reported Endocrine: No fatigue, No excessive thirst, No excessive urination, No problem reported Hematologic / Lymphatic: No abnormal bleeding/bruising, No clotting problems, No swollen lymph nodes, No night sweats, No problem reported Integumentary: No rash, No itch, No new/changing skin lesions, No color change , No bleeding, No problem reported Allergic / Immunologic: No environmental allergies, No seasonal allergies, No pet sensitivities, No food allergies, No hives, No frequent infections, No poor healing, No prolonged convalescence, No problem reported Physical Exam Vital Signs Date Time Temp Pulse Resp B/P (MAP) Pulse Ox O2 Delivery O2 Flow Rate FiO2 05/31/17 20:45 37.1 111/68 (82) 05/31/17 16:00 Room Air 05/31/17 15:30 36.4 65 18 111/68 97 Room Air General Appearance: WD/WN, no apparent distress Head: normocephalic, atraumatic Eyes: normal inspection, EOMI, sclerae normal ENT: normal ENT inspection, hearing grossly normal, pharynx normal Neck: supple, no adenopathy, no JVD, trachea midline Respiratory/Chest: chest non-tender, lungs clear, normal breath sounds, no respiratory distress, no accessory muscle use Cardiovascular: regular rate, rhythm, no edema, no gallop, no JVD, no murmur, normal peripheral pulses, + pertinent finding (left UE fistula, no thrill, no bruit) Abdomen/GI: normal bowel sounds, non tender, soft, no organomegaly, + pertinent finding (peritoneal catheter in good position, skin is clean, no erythema or tenderness) Back: no CVA tenderness, no muscle spasm, + decreased range of motion, + paravertebral tenderness, + pertinent finding (midline scars) Extremities/Musculoskelatal: normal inspection, no calf tenderness, normal capillary refill, no pedal edema, normal range of motion Neurologic/Psych: vegetable cook II-XII nml as tested, no motor/sensory deficits, alert, normal mood/affect, normal reflexes, oriented x 3 Skin: normal color, warm/dry, no rash Diagnostics Laboratory Results Results Past 24 Hours Test 05/31/17 16:35 05/31/17 17:49 05/31/17 20:51 05/31/17 21:26 Range/Units Bedside Glucose 174 234 70-90 mg/dl White Blood Count 6.43 4.8-10.8 K/uL Red Blood Count 3.51 4.2-5.4 M/uL Hemoglobin 10.2 12.0-16.0 g/dL Hematocrit 31.1 37-47 % Mean Corpuscular Volume 88.6 80-100 fL Mean Corpuscular Hemoglobin 29.1 25-34 pg Mean Corpuscular Hemoglobin Concent 32.8 32-36 g/dl RDW Standard Deviation 49.8 36.4-46.3 fL RDW Coefficient of Variation 15.2 11.5-14.5 % Platelet Count 243 130-400 K/uL Mean Platelet Volume 9.6 7.4-10.4 fL Prothrombin Time 10.5 9.0-12.0 SECONDS Prothromb Time International Ratio 1.0 0.9-1.1 Activated Partial Thromboplast Time 24.8 21.0-31.0 SECONDS Partial Thromboplastin Ratio 1.0 Sodium Level 135 136-145 mmol/L Potassium Level 4.9 3.5-5.1 mmol/L Chloride Level 101 98-107 mmol/L Carbon Dioxide Level 25 21-32 mmol/L Anion Gap 9.0 3-11 mmol/L Blood Urea Nitrogen 71 7-18 mg/dl Creatinine 6.29 0.60-1.20 mg/dl Est Creatinine Clear Calc Drug Dose 10.2 ml/min Estimated GFR () 7.6 Estimated GFR (Non- 6.6 BUN/Creatinine Ratio 11.4 10-20 Random Glucose 182 70-99 mg/dl Calcium Level 8.2 8.5-10.1 mg/dl Hepatitis B Surface Antigen NEG NEG Hepatitis B Surface Antibody POS Impression Assessment and Plan 62 yo female with ESRD on PD every night with malfunctioning left AV fistula - Left AV fistula malfunction: possible thrombosis, no thrill or bruit consult Dr. Mclaughlin NPO after midnight for potential fistulogram with declotting tomorrow - ESRD on PD: consult Dr. Oro for PD orders repeat labs in the AM - DM type II: recent hypoglycemia will continue Lantus and Novolog coverage hold on Glipizide due to recent hypoglycemia - HTN: continue Norvasc, Lisinopril, Labetalol, Lasix - Chronic back pain: Fentanyl 37mcg patch, Holden PRN, Morphine for breakthrough - Recent falls: could have been due to hypotension, hypoglycemia no signs of trauma, head CT normal PT/OT evaluations BP normal here on admission - DVT prophylaxis: Heparin q8 Level of Care Med/Surg Advanced Directives Existing Living Will: No Existing Power of Real Estate Rep: No Resuscitation Status FULL RESUSCITATION VTE Prophylaxis VTE Risk Assessment Done? Y/N: Yes Risk Level: Low Given or contraindicated: Unfractionated heparin SQ Additional Copies To Nando Meredith M.D.
[2017-05-31 23:32] VITALS: BP_SYST 111; BP_SYST 117; BP_SYST 138; BP_DIAS 118; BP_DIAS 64; BP_DIAS 67; PULSE 85; TEMP 36.9; O2SAT 94
[2017-06-01] VITALS (12 sets, daily range): BP systolic 80–153; BP diastolic 52–81; PULSE 64–85; TEMP 36.4–37; O2SAT 96–99; Ht 172.7 cm; Wt 81.6 kg
[2017-06-01] MEDS: CHECK FENTANYL PATCH PLACEMENT SCH ×6 (00:13→18:38)
[2017-06-01] MEDS: hydrOXYzine HCL 25 MG TAB PO SCH ×4 (01:32→18:36)
[2017-06-01] MEDS: HYDROCODONE/ACETAMINOPHEN 7.5/325MG TAB PO PRN ×3 (01:32→18:36)
[2017-06-01] MEDS: HEPARIN SOD 5000 UNIT/0.5 ML CARP SQ SCH ×3 (05:24→20:41)
[2017-06-01 06:43] LABS: BASO % 1.3 %; BASO ABS # 0.07 K/uL (0-0.2); EOS % 7.9 %; EOS ABS # 0.44 K/uL (0-0.5); HEMATOCRIT 28.3 % (37-47); HEMOGLOBIN 9.4 g/dL (12.0-16.0); IG# 0.02 K/uL (0.00-0.02); LYMPH % 37.3 %; LYMPH ABS # 2.08 K/uL (1.2-3.4); MEAN CELL VOLUME 88.7 fL (80-100); MEAN CORPUSCULAR HEMOGLOBIN 29.5 pg (25-34); MEAN CORPUSCULAR HGB CONC 33.2 g/dl (32-36); MEAN PLATELET VOLUME 9.3 fL (7.4-10.4); MONO % 6.8 %; MONO ABS # 0.38 K/uL (0.11-0.59); NEUT % 46.3 %; NEUT ABS # 2.58 K/uL (1.4-6.5); PLATELET COUNT 207 K/uL (130-400); RED CELL DISTRIBUTION WIDTH CV 15.3 % (11.5-14.5); RED CELL DISTRIBUTION WIDTH SD 49.7 fL (36.4-46.3); WHITE BLOOD COUNT 5.57 K/uL (4.8-10.8)
[2017-06-01 07:31] LABS: ALBUMIN 2.4 gm/dl (3.4-5.0); CREATININE 5.74 mg/dl (0.60-1.20); TOTAL PROTEIN 6.1 gm/dl (6.4-8.2)
[2017-06-01] MEDS: ASPIRIN 81 MG ECTAB PO SCH (07:35)
[2017-06-01] MEDS: TOCOPHERYL, DL-ALPHA 400 INTER.UNIT CAP PO SCH (07:36)
[2017-06-01] MEDS: PREGABALIN 25MG CAP PO SCH ×2 (07:36→20:44)
[2017-06-01] MEDS: PANTOprazole SOD 40 MG TAB PO SCH (07:36)
[2017-06-01] MEDS: SERTRALINE HCL 100 MG TAB PO SCH (07:37)
[2017-06-01] MEDS: MoRPHine SULFATE 2 MG/ML CARP IV PRN ×3 (07:38→21:00)
[2017-06-01] MEDS: LABETALOL HCL 100 MG TAB PO SCH (07:42)
[2017-06-01] MEDS: INSULIN ASPART 100 UNITS/ML 3 ML PEN SC SCH ×4 (07:48→20:57)
[2017-06-01] MEDS: CARISOPRODOL 350 MG TAB PO SCH ×3 (07:55→20:44)
[2017-06-01] MEDS ORDERED: AMLODIPINE BESYLATE 5 MG TAB PO SCH (09:00)
[2017-06-01] MEDS ORDERED: LISINOPRIL 40 MG TAB PO SCH (09:00)
[2017-06-01] MEDS ORDERED: FUROSEMIDE 40 MG TAB PO SCH (09:00)
--- NOTE | 2017-06-01 10:04 | Surgery Consultation ---
Consultation Date of Service Jun 01, 2017. (Tresa Deleon, ARSEN) Chief Complaint thrombosed LUE AVF (Tresa Deleon, ARSEN) History of Present Illness The patient is a 62 year old female with multiple medical problems, including ESRD on PD, known to Dr Mclaughlin for previous BL renal art stenting in 2014, seen in consultation today for weak thrill in LUE AVF. Pt states she had AVF created in 2015, then underwent transposition procedure in spring. Has never been used for HD, but had blood draw at HD unit a few weeks ago from this. States she had multiple episodes of syncope/near syncope last week and went to [facility], where she noted weak thrill in her AVF 2 days ago, so was sent to [facility] for eval. Per pt, she was told she was feeling weak d/t low blood pressure and low blood sugars. States her PD catheter has been working well. Denies SYLVESTER, fever, chills, chest pain, SOB, abd pain, N/V, rest pain, claudication, other complaints. (Tresa Deleon, ARSEN) Vitals Vital Signs Past 12 Hours Date Time Temp Pulse Resp B/P (MAP) Pulse Ox O2 Delivery O2 Flow Rate FiO2 06/01/17 09:39 Room Air 06/01/17 07:39 111/69 (83) 95/63 (74) 06/01/17 07:34 36.4 79 20 119/66 (83) 97 Room Air 06/01/17 06:30 36.4 84 16 110/69 (83) 05/31/17 23:32 36.9 85 18 138/118 (125) 94 Room Air 117/67 (84) 111/64 (80) (Tresa Deleon, DIVYAC) Allergies Coded Allergies: Sulfa Antibiotics (Verified Allergy, Intermediate, BLISTERS IN MOUTH, 10/03) Tetracycline (Verified Allergy, Intermediate, BLISTERS IN MOUTH, 10/03/16) Adhesives (Verified Allergy, Mild, RASH, 10/03/16) Doxycycline (Verified Allergy, Unknown, mouth blisters, 10/03/16) Latex1 -Allergic Contact Dermititis (Verified Allergy, Unknown, UNKNOWN, ) PER PREOP ABX ORDER Home Medications Scheduled Amlodipine Besylate (Amlodipine Besylate), 1 TAB PO DAILY Aspirin (Aspirin), 1 TAB PO DAILY Atorvastatin (Lipitor), 80 MG PO HS B-Complex W/ C & Folic Acid (Renal Vitamin 0.8 mg), 1 TAB PO DAILY Carisoprodol (Soma), 350 MG PO TID Ergocalciferol (Vitamin D), 1 TAB PO [id number] Folic Acid (Folic Acid), 1 TAB PO DAILY Furosemide (Furosemide), 1 TAB PO DAILY Glipizide (Glipizide Er), 1 TAB PO BID Hydrocodone/Acetaminophen 7.5MG/325MG ([place] 7.5MG/325MG), 2 TABS PO Q6H Hydroxyzine HCl (Hydroxyzine HCl), 1 TAB PO Q6H Insulin Glargine (Lantus Solostar), 35 UNITS SC HS Labetalol HCl (Labetalol HCl), 2 TAB PO BID Lisinopril (Lisinopril), 1 TAB PO DAILY Omeprazole (Prilosec), 1 TAB PO DAILY Pregabalin (Lyrica), 25 MG PO BID Probiotic Product (Probiotic), 1 CAP PO DAILY Sertraline HCl (Sertraline HCl), 2 TAB PO DAILY Trazodone Hcl (Trazodone), 200 MG PO HS PRN Vitamin E (Vitamin E 400 Iu), 400 INTER.UNIT PO DAILY Miscellaneous Medications Insulin Aspart (Novolog Flexpen), 1 DOSE SC Problem List Medical Problems: (1) Arthritis (2) Bronchitis (3) Diabetes (4) Dialysis AV fistula malfunction (5) End stage renal disease (6) H/O blood clots (7) Kidney stone Surgical Problems: (1) H/O: hysterectomy (2) Hx of lithotripsy (Tresa Deleon, DIVYAC) Surgical / Medical History Hx Cardiac Surgery: No Hx Abdominal Surgery: Yes (Hysterectomy/Cholecystectomy) Hx Cancer Surgery: No Hx Thoracic Surgery: No Hx Orthopedic: Yes (back surgery) Hx Urinary Tract Surgery: No HX Other Surgery: Yes Past Medical/Surgical History: Diabetes, Hypertension, Kidney Disease (Tresa Deleon, DIVYAC) Family History FH: cancer FH: diabetes mellitus FH: heart disease FH: hypertension FH: kidney disease (Tresa Deleon, DIVYAC) FH: cancer FH: diabetes mellitus FH: heart disease FH: hypertension FH: kidney disease (Ash Mclaughlin M.D.) Social History Smoking Status: Former Smoker Hx Tobacco Use In Past Year?: No Hx Alcohol Use - Type & Amnt: No Hx Substance Use -Type & Amnt: Yes (Tresa Deleon, DIVYAC) Review of Systems Constitutional: No chills, No fever, No malaise Skin: No change in color Eyes: No visual changes ENMT: No sore throat Respiratory: No cough, No ISBELL, No hemoptysis, No short of breath Cardiovascular: + syncope, No chest pain, No chest pressure, No palpitations, No edema, No intermittent claudication Gastrointestinal: No abdominal pain, No nausea, No vomiting Neurologic: + weakness, No dizziness, No headache, No numbness, No tingling ( Tresa Deleon, DIVYAC) Physical Exam Constitutional: General Apperance: well-nourished, well-developed Level of Distress: NAD, chronically ill Ambulation: ambulating normally Psychiatric: Mental Status: active & alert, normal mood, normal affect Orientation: oriented except where noted, to time, to place, to person Memory: recent memory normal, remote memory normal Head: normocephalic, atraumatic Eyes: EOM: EOMI ENMT: normal ENT inspection, hearing grossly normal Neck: supple, trachea midline Lungs: Respiratory effort: no dyspnea Auscultation: no rales/crackles, no rhonchi, decreased breath sounds Cardiovascular: Apical Impulse: not displaced Heart Auscultation: RRR, no rubs, no gallops Peripheral Pulses: Pulses: full and equal, in all extremities except if noted Bruits: none appreciated Carotid Pulse: normal on the left, normal on the right Brachial Pulses: normal on the left, normal on the right, pertinent finding (LUE AVF without thrill/bruit) Radial Pulse: normal on the left, normal on the right Femoral Pulse: normal on the left, normal on the right Posterior Tibialis Pulse: decreased on the left, decreased on the right Dorsalis Pedis Pulse: decreased on the left, decreased on the right Abdomen: Bowel Sounds: normal Inspection & Palpation: soft, non-distended, no tenderness, guarding & rebound Musculoskeletal: normal strength (5/5 throughout), normal tone Extremities: Upper Right: no cyanosis, no edema, no varicosities Upper Left: no cyanosis, no edema, no varicosities Lower Right: no cyanosis, no edema, no varicosities, no palpable cord Lower Left: no cyanosis, no edema, no varicosities Neurologic: Cranial Nerves: grossly intact Sensation: grossly intact (Tresa Deleon, PA-C) Assessment and Plan ASSESSMENT and PLAN: thrombosed LUE AVF ESRD on PD Pt scheduled for LUE fistulagram/thrombectomy procedure today. Discussed with pt, she is agreeable. (Tresa Deleon, PA-C) Patient was seen, examined, and chart reviewed. Agree with exam and treatment plan of the Vascular PA. (Ash Mclaughlin M.D.)
[2017-06-01] MEDS ORDERED: SODIUM CHLORIDE 0.9% 500ML 500 ML IV ONE (11:30)
--- NOTE | 2017-06-01 11:36 | Hospitalist Progress Note ---
Hospitalist Progress Note Date of Service Jun 01, 2017. Subjective Pt evaluation today including: conversation w/ patient, physical exam, chart review, lab review, review of inpatient medication list Patient complains of back pain, which is chronic. She is also eager to have her procedure done as she is hungry. She otherwise denies complaints. She denies any dizziness/lightheadedness. The patient denies fevers, chills, sweats , chest pain, palpitations, claudication, cough, wheezing, shortness of breath, nausea, vomiting, abdominal pain, dysuria, hematuria, urinary retention, paralysis, weakness, numbness and tingling. Additional Comments: See HPI for pertinent positives and negatives. All other systems reviewed and negative. Objective Vital Signs Date Time Temp Pulse Resp B/P (MAP) Pulse Ox O2 Delivery O2 Flow Rate FiO2 06/01/17 10:39 76 80/52 (61) 06/01/17 09:39 Room Air 06/01/17 07:39 111/69 (83) 95/63 (74) 06/01/17 07:34 36.4 79 20 119/66 (83) 97 Room Air 06/01/17 06:30 36.4 84 16 110/69 (83) 05/31/17 23:32 36.9 85 18 138/118 (125) 94 Room Air 117/67 (84) 111/64 (80) 05/31/17 20:45 37.1 111/68 (82) 05/31/17 20:00 97 Room Air 05/31/17 16:00 Room Air 05/31/17 15:30 36.4 65 18 111/68 97 Room Air Physical Exam Notes: General appearance: Well-developed, well-nourished, no apparent distress Head: Normocephalic, atraumatic Eyes: Normal inspection, PERRL, EOMI ENT: Normal ENT inspection, hearing grossly normal, pharynx normal Neck: Supple, no JVD, trachea midline Respiratory/Chest: Lungs clear to auscultation, normal breath sounds, no respiratory distress Cardiovascular: Regular rate & rhythm, no gallop, no murmur Abdomen/GI: +PD site in LUQ clean, no surrounding erythema or drainage. Normal bowel sounds, non-tender, soft Extremities/Musculoskeletal: +LUE fistula no thrill. Normal inspection, no calf tenderness, no pedal edema Neurological/Psych: Alert, normal mood/affect, oriented x 3 Skin: Normal color, warm/dry, no rash Laboratory Results Last 24 Hours Test 05/31/17 16:35 05/31/17 17:49 05/31/17 20:51 05/31/17 21:26 Bedside Glucose 174 mg/dl 234 mg/dl White Blood Count 6.43 K/uL Red Blood Count 3.51 M/uL Hemoglobin 10.2 g/dL Hematocrit 31.1 % Mean Corpuscular Volume 88.6 fL Mean Corpuscular Hemoglobin 29.1 pg Mean Corpuscular Hemoglobin Concent 32.8 g/dl RDW Standard Deviation 49.8 fL RDW Coefficient of Variation 15.2 % Platelet Count 243 K/uL Mean Platelet Volume 9.6 fL Prothrombin Time 10.5 SECONDS Prothromb Time International Ratio 1.0 Activated Partial Thromboplast Time 24.8 SECONDS Partial Thromboplastin Ratio 1.0 Sodium Level 135 mmol/L Potassium Level 4.9 mmol/L Chloride Level 101 mmol/L Carbon Dioxide Level 25 mmol/L Anion Gap 9.0 mmol/L Blood Urea Nitrogen 71 mg/dl Creatinine 6.29 mg/dl Est Creatinine Clear Calc Drug Dose 10.2 ml/min Estimated GFR () 7.6 Estimated GFR (Non- 6.6 BUN/Creatinine Ratio 11.4 Random Glucose 182 mg/dl Calcium Level 8.2 mg/dl Hepatitis B Surface Antigen NEG Hepatitis B Surface Antibody POS Test 06/01/17 06:17 06/01/17 07:17 06/01/17 11:03 White Blood Count 5.57 K/uL Red Blood Count 3.19 M/uL Hemoglobin 9.4 g/dL Hematocrit 28.3 % Mean Corpuscular Volume 88.7 fL Mean Corpuscular Hemoglobin 29.5 pg Mean Corpuscular Hemoglobin Concent 33.2 g/dl Platelet Count 207 K/uL Mean Platelet Volume 9.3 fL Neutrophils (%) (Auto) 46.3 % Lymphocytes (%) (Auto) 37.3 % Monocytes (%) (Auto) 6.8 % Eosinophils (%) (Auto) 7.9 % Basophils (%) (Auto) 1.3 % Neutrophils # (Auto) 2.58 K/uL Lymphocytes # (Auto) 2.08 K/uL Monocytes # (Auto) 0.38 K/uL Eosinophils # (Auto) 0.44 K/uL Basophils # (Auto) 0.07 K/uL RDW Standard Deviation 49.7 fL RDW Coefficient of Variation 15.3 % Immature Granulocyte % (Auto) 0.4 % Immature Granulocyte # (Auto) 0.02 K/uL Sodium Level 134 mmol/L Potassium Level 4.0 mmol/L Chloride Level 102 mmol/L Carbon Dioxide Level 24 mmol/L Anion Gap 8.0 mmol/L Blood Urea Nitrogen 65 mg/dl Creatinine 5.74 mg/dl Est Creatinine Clear Calc Drug Dose 11.2 ml/min Estimated GFR () 8.5 Estimated GFR (Non- 7.3 BUN/Creatinine Ratio 11.3 Random Glucose 304 mg/dl Calcium Level 8.0 mg/dl Total Bilirubin 0.2 mg/dl Aspartate Amino Transf (AST/SGOT) 36 U/L Alanine Aminotransferase (ALT/SGPT) 45 U/L Alkaline Phosphatase 99 U/L Total Protein 6.1 gm/dl Albumin 2.4 gm/dl Globulin 3.7 gm/dl Albumin/Globulin Ratio 0.6 Beta-Hydroxybutyric Acid 0.53 mg/dL Bedside Glucose 300 mg/dl 112 mg/dl Assessment and Plan 62 y/o female with a history of ESRD on nightly PD, HTN, HLD, DM II, h/o renal artery stenosis, essential tremor, anemia, chronic back pain, anxiety/depression , and GERD who presents with malfunction of left upper extremity AV fistula. LUE AV fistula malfunction--ongoing -Admit to med/surg -Vascular surgery consulted, appreciate recs: fistulogram/thrombectomy today -Pt NPO for procedure -Fistula in place in case of infection from PD for temporary HD Hypotension -BP down to 80/52 -500 cc NSS bolus now, continue to monitor -Hold home BP meds ESRD on PD--stable -Nephrology following HTN, HLD--hypotension as above -Hold Norvasc 5 mg PO qd, lisinopril 40 mg PO qd, labetalol 200 mg PO BID, Lasix 40 mg PO qd for now -Continue Lipitor 80 mg PO hs DM II--last HgbA1c checked 01/05/17 was 7.4 -Hold glipizide -Lantus 35 units SC hs -Insulin sliding scale -Check BSGs q ac and qhs -Recheck HgbA1c Chronic back pain -Continue fentanyl patch 37 mcg TD q72h, [place] 7.5/325 PO q4h prn pain and IV morphine prn breakthrough -Continue Lyrica 25 mg PO BID Recent falls--reportedly 8 falls in last week -Secondary to hypotension vs recent hypoglycemia (at [facility])? -PT/OT evaluate and treat -Head CT done at OSH negative for hematoma, or acute disease Anxiety, depression -Continue hydroxyzine 25 mg PO q6h and Zoloft 200 mg PO qd DVT prophylaxis -Heparin 5000 units SC q8h Code Status -Level I, FULL RESUSCITATION STATUS
[2017-06-01] MEDS ORDERED: CEFAZOLIN 1000MG IV PUSH 5 ML IV SCH (12:00)
[2017-06-01] MEDS ORDERED: CEFAZOLIN IV 1,000 MG in DEXTROSE 5% 50ML 50 ML IV ONE (12:00)
[2017-06-01 12:22] LABS: HEMOGLOBIN A1C 7.5 % (4.5-5.6)
--- NOTE | 2017-06-01 12:32 | Nephrology Progress Note ---
Nephrology Progress Note Date of Service Jun 01, 2017. Chief Complaint ESRD on PD Subjective No acute events overnight. PD performed without complications. Orthostatic vitals noted. I reviewed the case and discussed the plan of care with vascular surgery this morning. Review of Systems A complete review of systems was performed. Pertinent positives are noted above. All other systems are negative. Vital Signs Last 8 Hrs Date Time Temp Pulse Resp B/P (MAP) Pulse Ox O2 Delivery O2 Flow Rate FiO2 06/01/17 12:23 71 16 90/60 (70) 06/01/17 10:39 76 80/52 (61) 06/01/17 09:39 Room Air 06/01/17 07:39 111/69 (83) 95/63 (74) 06/01/17 07:34 36.4 79 20 119/66 (83) 97 Room Air 06/01/17 06:30 36.4 84 16 110/69 (83) Last Recorded Weight Weight (Kilograms): 76.200 Physical Exam General Appearance: WD/WN, no apparent distress Head: normocephalic, atraumatic Eyes: normal inspection, sclerae normal ENT: normal ENT inspection, pharynx normal Neck: supple, no JVD Respiratory/Chest: lungs clear, no respiratory distress, no accessory muscle use Cardiovascular: regular rate, rhythm, no edema, no gallop Abdomen/GI: non tender, soft Extremities/Musculoskelatal: normal inspection, no pedal edema Neurologic/Psych: alert, normal mood/affect Family History FH: cancer FH: diabetes mellitus FH: heart disease FH: hypertension FH: kidney disease Negative for CKD / ESRD Social History Smoking Status: Former smoker Drug Use: none Marital Status: Occupation: unemployed . Resides in [place], [place]. Disabled . Former smoker (quit 5 years ago). Laboratory Results Past 24 Hours 05/31/17 17:49 06/01/17 06:17 Red Blood Count 3.19, Mean Corpuscular Volume 88.7, Mean Corpuscular Hemoglobin 29.5, Mean Corpuscular Hemoglobin Concent 33.2, Mean Platelet Volume 9.3, Neutrophils (%) (Auto) 46.3, Lymphocytes (%) (Auto) 37.3, Monocytes (%) (Auto) 6.8, Eosinophils (%) (Auto) 7.9, Basophils (%) (Auto) 1.3, Neutrophils # (Auto) 2.58, Lymphocytes # (Auto) 2.08, Monocytes # (Auto) 0.38, Eosinophils # (Auto) 0.44, Basophils # (Auto) 0.07 05/31/17 17:49 06/01/17 06:17 Test 05/31/17 16:35 05/31/17 17:49 05/31/17 20:51 05/31/17 21:26 Bedside Glucose 174 mg/dl (70-90) 234 mg/dl (70-90) Red Blood Count 3.51 M/uL (4.2-5.4) Mean Corpuscular Volume 88.6 fL (80-100) Mean Corpuscular Hemoglobin 29.1 pg (25-34) Mean Corpuscular Hemoglobin Concent 32.8 g/dl (32-36) RDW Standard Deviation 49.8 fL (36.4-46.3) RDW Coefficient of Variation 15.2 % (11.5-14.5) Mean Platelet Volume 9.6 fL (7.4-10.4) Prothrombin Time 10.5 SECONDS (9.0-12.0) Prothromb Time International Ratio 1.0 (0.9-1.1) Activated Partial Thromboplast Time 24.8 SECONDS (21.0-31.0) Partial Thromboplastin Ratio 1.0 Anion Gap 9.0 mmol/L (3-11) Est Creatinine Clear Calc Drug Dose 10.2 ml/min Estimated GFR () 7.6 Estimated GFR (Non- 6.6 BUN/Creatinine Ratio 11.4 (10-20) Calcium Level 8.2 mg/dl (8.5-10.1) Hepatitis B Surface Antigen NEG (NEG) Hepatitis B Surface Antibody POS Test 06/01/17 06:17 06/01/17 07:17 06/01/17 11:03 White Blood Count 5.57 K/uL (4.8-10.8) Red Blood Count 3.19 M/uL (4.2-5.4) Hemoglobin 9.4 g/dL (12.0-16.0) Hematocrit 28.3 % (37-47) Mean Corpuscular Volume 88.7 fL (80-100) Mean Corpuscular Hemoglobin 29.5 pg (25-34) Mean Corpuscular Hemoglobin Concent 33.2 g/dl (32-36) Platelet Count 207 K/uL (130-400) Mean Platelet Volume 9.3 fL (7.4-10.4) Neutrophils (%) (Auto) 46.3 % Lymphocytes (%) (Auto) 37.3 % Monocytes (%) (Auto) 6.8 % Eosinophils (%) (Auto) 7.9 % Basophils (%) (Auto) 1.3 % Neutrophils # (Auto) 2.58 K/uL (1.4-6.5) Lymphocytes # (Auto) 2.08 K/uL (1.2-3.4) Monocytes # (Auto) 0.38 K/uL (0.11-0.59) Eosinophils # (Auto) 0.44 K/uL (0-0.5) Basophils # (Auto) 0.07 K/uL (0-0.2) RDW Standard Deviation 49.7 fL (36.4-46.3) RDW Coefficient of Variation 15.3 % (11.5-14.5) Immature Granulocyte % (Auto) 0.4 % Immature Granulocyte # (Auto) 0.02 K/uL (0.00-0.02) Anion Gap 8.0 mmol/L (3-11) Est Creatinine Clear Calc Drug Dose 11.2 ml/min Estimated GFR () 8.5 Estimated GFR (Non- 7.3 BUN/Creatinine Ratio 11.3 (10-20) Estimated Average Glucose 169 mg/dl Hemoglobin A1c 7.5 % (4.5-5.6) Calcium Level 8.0 mg/dl (8.5-10.1) Total Bilirubin 0.2 mg/dl (0.2-1) Aspartate Amino Transf (AST/SGOT) 36 U/L (15-37) Alanine Aminotransferase (ALT/SGPT) 45 U/L (12-78) Alkaline Phosphatase 99 U/L (45-117) Total Protein 6.1 gm/dl (6.4-8.2) Albumin 2.4 gm/dl (3.4-5.0) Globulin 3.7 gm/dl (2.5-4.0) Albumin/Globulin Ratio 0.6 (0.9-2) Beta-Hydroxybutyric Acid 0.53 mg/dL (0.2-2.81) Bedside Glucose 300 mg/dl (70-90) 112 mg/dl (70-90) Allergies Coded Allergies: Sulfa Antibiotics (Verified Allergy, Intermediate, BLISTERS IN MOUTH, 10/03) Tetracycline (Verified Allergy, Intermediate, BLISTERS IN MOUTH, 10/03/16) Adhesives (Verified Allergy, Mild, RASH, 10/03/16) Doxycycline (Verified Allergy, Unknown, mouth blisters, 10/03/16) Latex1 -Allergic Contact Dermititis (Verified Allergy, Unknown, UNKNOWN, ) PER PREOP ABX ORDER Medications Current Inpatient Medications Medications (Trade) Dose Ordered Sig/April Route Start Time Stop Time Status Last Admin Dose Admin Heparin Sodium (Porcine) (Heparin Sq 5000 Unit/0.5ml) 5,000 unit Q8H SQ 05/31/17 20:30 06/30/17 20:29 06/01/17 05:24 5,000 UNIT Acetaminophen (Tylenol Tab) 650 mg Q4H PRN PO 05/31/17 16:30 06/30/17 16:29 Ondansetron HCl (Zofran Inj) 4 mg Q6H PRN IV 05/31/17 16:30 06/30/17 16:29 Insulin Aspart (novoLOG ASPART) SLIDING SCALE G... ACHS SC 05/31/17 21:00 06/30/17 20:59 06/01/17 07:48 5 UNITS Acetaminophen/ Hydrocodone Bitart ([place] 7.5/325 Tab) 1 tab Q4 PRN PO 05/31/17 18:30 06/14/17 18:29 06/01/17 11:35 1 TAB Amlodipine Besylate (Norvasc Tab) 5 mg DAILY PO 06/01/17 09:00 07/01/17 08:59 Future Hold Aspirin (Ecotrin Tab) 81 mg DAILY PO 06/01/17 09:00 07/01/17 08:59 06/01/17 07:35 81 MG Atorvastatin Calcium (Lipitor Tab) 80 mg HS PO 05/31/17 21:00 06/30/17 20:59 05/31/17 21:40 80 MG Carisoprodol (Soma Tab) 350 mg TID PO 05/31/17 21:00 06/30/17 20:59 06/01/17 07:55 350 MG Folic Acid (Folvite Tab) 1 mg DAILY PO 06/01/17 09:00 07/01/17 08:59 06/01/17 07:35 1 MG Furosemide (Lasix Tab) 40 mg DAILY PO 06/01/17 09:00 07/01/17 08:59 Future Hold 06/01/17 07:35 40 MG Hydroxyzine HCl (Vistaril Tab) 25 mg Q6H PO 05/31/17 19:00 06/30/17 18:59 06/01/17 07:07 25 MG Insulin Glargine (Lantus Solostar Pen) 35 units HS SC 05/31/17 21:00 06/30/17 20:59 05/31/17 21:47 35 UNITS Labetalol HCl (Normodyne Tab) 200 mg BID PO 05/31/17 21:00 06/30/17 20:59 Future Hold 05/31/17 21:41 200 MG Lisinopril (Zestril Tab) 40 mg DAILY PO 06/01/17 09:00 07/01/17 08:59 Future Hold Pregabalin (Lyrica Cap) 25 mg BID PO 05/31/17 21:00 06/30/17 20:59 06/01/17 07:36 25 MG Sertraline HCl (Zoloft Tab) 200 mg DAILY PO 06/01/17 09:00 07/01/17 08:59 06/01/17 07:37 200 MG Trazodone HCl (Desyrel Tab) 200 mg HS PO 05/31/17 21:00 06/30/17 20:59 05/31/17 21:40 200 MG rh-Pntrt-Jxwflljvqt Acetate (Vitamin E Cap) 400 interunit DAILY PO 06/01/17 09:00 07/01/17 08:59 06/01/17 07:36 400 INTERUNIT Pantoprazole Sodium (Protonix Tab) 40 mg QAM PO 06/01/17 09:00 07/01/17 08:59 06/01/17 07:36 40 MG Fentanyl (Duragesic Patch) 12 mcg Q72H TD 06/02/17 15:00 06/16/17 14:59 Fentanyl (Duragesic Patch) 25 mcg Q72H TD 06/02/17 15:00 06/16/17 14:59 Miscellaneous (Fentanyl Patch Remove & Waste) 1 ea Q3D@1459 N/A 06/02/17 14:59 07/02/17 14:58 Miscellaneous Information (Check Fentanyl Patch Placement) 1 ea QS N/A 06/01/17 00:00 07/01/17 00:00 06/01/17 07:38 1 EA Miscellaneous (Fentanyl Patch Remove & Waste) 1 ea Q3D@1459 N/A 06/02/17 14:59 07/02/17 14:58 Miscellaneous Information (Check Fentanyl Patch Placement) 1 ea QS N/A 06/01/17 00:00 07/01/17 00:00 06/01/17 07:39 1 EA Morphine Sulfate (MoRPHine SULFATE INJ) 4 mg Q4 PRN IV 05/31/17 19:45 06/14/17 19:44 Morphine Sulfate (MoRPHine SULFATE INJ) 2 mg Q4 PRN IV 05/31/17 19:45 06/14/17 19:44 06/01/17 07:38 2 MG Glucose (Glucose 40% Gel) 15-30 GRAMS 15 GRAMS... UD PRN PO 05/31/17 21:15 06/30/17 21:14 Glucose (Glucose Chew Tab) 4-8 Tablets 4 Tabl... UD PRN PO 05/31/17 21:15 06/30/17 21:14 Dextrose (Dextrose 50% 50ML Syringe) 25-50ML OF 50% DW IV FOR... UD PRN IV 05/31/17 21:15 06/30/17 21:14 Glucagon (Glucagon Inj) 1 mg UD PRN SQ 05/31/17 21:15 06/30/17 21:14 Cefazolin Sodium 5 ml @ 1.667 mls/ min PRE-SPECIALS IV 06/01/17 12:00 06/01/17 18:00 Impression (1) End stage renal disease (2) Dialysis AV fistula malfunction (3) Hypertension # Weakness w/ recurrent fall # Orthostatic hypotension # ESRD due to vascular disease and HTN on NCCPD # L upper arm AVF with weak thrill / bruit # AODM # HTN # h/o ASCVD # Former smoker Recommendations END STAGE RENAL DISEASE: -- Will provide NCCPD therapy tonight according to chronic outpatient orders -- Will reduce UF and use 1.5% dextrose tonight -- Obtain PRP in am VASCULAR ACCESS: -- I have spoken w/ vascular surgery -- Thrombectomy scheduled for this afternoon HYPERTENSION: -- Monitor orthostatic bp & pulse QAM -- Continue outpatient bp regimen of Labetalol, Amlodipine and Lisinopril DM: -- Low dextrose dialysate to be used tonight
--- NOTE | 2017-06-01 15:31 | Progress Note ---
Progress Note Date of Service Jun 01, 2017. Progress Note Patient for fistulogram with possible intervention today. I have discussed the risks options and benefits of the procedure with the patient. The patient understands the risks options and benefits and agrees to the procedure.
--- NOTE | 2017-06-01 15:31 | Procedure Note ---
Pre-Mod Sedation Assessment General Date of Moderate Sedation: Jun 01, 2017. Vital Signs: Vital Signs Past 12 Hours Date Time Temp Pulse Resp B/P (MAP) Pulse Ox O2 Delivery O2 Flow Rate FiO2 06/01/17 12:23 71 16 90/60 (70) 06/01/17 10:39 76 80/52 (61) 06/01/17 09:39 Room Air 06/01/17 07:39 111/69 (83) 95/63 (74) 06/01/17 07:34 36.4 79 20 119/66 (83) 97 Room Air 06/01/17 06:30 36.4 84 16 110/69 (83) Review Cardiovascular: regular rate, rhythm, no edema, no gallop Abdomen: non tender, soft Lungs: lungs clear, no respiratory distress, no accessory muscle use Pre-Sedation Airway Assessment Oral Cavity: Dental Abnormalities Smoking Status: Former Smoker Mallampati Classification: Class I ASA Classification: Class III Notes The planned sedation has been discussed with the patient and consent obtained. I have identified the patient, determined the appropriateness of sedation and have assessed the patient immediately prior to the procedure. All medicine(s) and interventions are by my order.
[2017-06-01] MEDS ORDERED: MIDAZOLAM HCL 1 MG/ML 2ML VIAL ONE (15:45)
[2017-06-01] MEDS ORDERED: FENTANYL CITRATE INJ 50 MCG/1 ML 2 ML VIAL ONE (15:45)
--- NOTE | 2017-06-01 16:29 | [facility] Post Operative Brief Note ---
Immediate Operative Summary Operative Date Jun 01, 2017. Pre-Operative Diagnosis Malfunctioning Fistula Post-Operative Diagnosis Same Procedure(s) Performed Fistulogram, Moderate Sedation from 1613 - 1626. Surgeon Dr. Mclaughlin Wind Operations Manager Surgeon(s) Dr. Cohn Estimated Blood Loss 0 Findings severe stenosis arterial anastomosis Specimens None Anesthesia Local with sedation Complication(s) None Disposition
--- NOTE | 2017-06-01 16:30 | Procedure Note ---
Post-Moderate Sedation Plan General Date of Moderate Sedation Jun 01, 2017. Vital Signs: Vital Signs Past 12 Hours Date Time Temp Pulse Resp B/P (MAP) Pulse Ox O2 Delivery O2 Flow Rate FiO2 06/01/17 12:23 71 16 90/60 (70) 06/01/17 10:39 76 80/52 (61) 06/01/17 09:39 Room Air 06/01/17 07:39 111/69 (83) 95/63 (74) 06/01/17 07:34 36.4 79 20 119/66 (83) 97 Room Air 06/01/17 06:30 36.4 84 16 110/69 (83) Review - Discharge Plan Post Moderate Sedation Plan: On clinical assessment, the patient appears to have tolerated the conscious sedation without complications. Patient is recovering as anticipated. Patient will continue to be monitored by nursing and may be discharged when conscious sedation discharge criteria are met.
[2017-06-01] MEDS: TRAZODONE HCL 100 MG TAB PO SCH (20:45)
[2017-06-01] MEDS: ATORVASTATIN 40 MG TAB PO SCH (20:45)
[2017-06-01] MEDS: INSULIN GLARGINE SOLOSTAR 100 UNITS/ML 3 ML PEN SC SCH (20:58)
[2017-06-02] VITALS (12 sets, daily range): BP systolic 80–178; BP diastolic 44–90; PULSE 76–112; TEMP 36.1–37.7; O2SAT 94–98
[2017-06-02] MEDS ORDERED: CEFAZOLIN IV 1,000 MG in DEXTROSE 5% 50ML 50 ML IV SCH ×2
[2017-06-02] MEDS: CHECK FENTANYL PATCH PLACEMENT SCH ×6 (00:06→16:00)
[2017-06-02] MEDS: HYDROCODONE/ACETAMINOPHEN 7.5/325MG TAB PO PRN ×2 (00:13→06:30)
[2017-06-02] MEDS: CEFAZOLIN IV 1,000 MG in SYRINGE 0 ML IV SCH ×2 (00:14→07:51)
[2017-06-02] MEDS: hydrOXYzine HCL 25 MG TAB PO SCH ×4 (00:21→18:58)
[2017-06-02] MEDS: MoRPHine SULFATE 2 MG/ML CARP IV PRN ×3 (03:33→18:56)
[2017-06-02] MEDS: HEPARIN SOD 5000 UNIT/0.5 ML CARP SQ SCH ×3 (04:21→21:50)
[2017-06-02] MEDS ORDERED: NURSING DECISION MEDICATION ORDER SCH (05:00)
[2017-06-02] MEDS: INSULIN ASPART 100 UNITS/ML 3 ML PEN SC SCH ×4 (05:46→21:52)
[2017-06-02] MEDS: SERTRALINE HCL 100 MG TAB PO SCH (07:50)
[2017-06-02] MEDS: PANTOprazole SOD 40 MG TAB PO SCH (07:50)
[2017-06-02] MEDS: ASPIRIN 81 MG ECTAB PO SCH (07:51)
[2017-06-02] MEDS: TOCOPHERYL, DL-ALPHA 400 INTER.UNIT CAP PO SCH (07:51)
[2017-06-02] MEDS: PREGABALIN 25MG CAP PO SCH ×2 (07:56→21:44)
[2017-06-02] MEDS: CARISOPRODOL 350 MG TAB PO SCH ×3 (07:56→21:44)
[2017-06-02 08:49] LABS: HEMATOCRIT 30.7 % (37-47); HEMOGLOBIN 10.2 g/dL (12.0-16.0); MEAN CELL VOLUME 88.7 fL (80-100); MEAN CORPUSCULAR HEMOGLOBIN 29.5 pg (25-34); MEAN CORPUSCULAR HGB CONC 33.2 g/dl (32-36); MEAN PLATELET VOLUME 9.3 fL (7.4-10.4); PLATELET COUNT 214 K/uL (130-400); RED CELL DISTRIBUTION WIDTH CV 15.1 % (11.5-14.5); RED CELL DISTRIBUTION WIDTH SD 49.2 fL (36.4-46.3); WHITE BLOOD COUNT 5.43 K/uL (4.8-10.8)
[2017-06-02 09:40] LABS: CALCIUM 8.7 mg/dl (8.5-10.1); CREATININE 4.6 mg/dl (0.60-1.20); POTASSIUM 4.3 mmol/L (3.5-5.1)
--- NOTE | 2017-06-02 10:19 | Nephrology Progress Note ---
Nephrology Progress Note Date of Service Jun 02, 2017. Chief Complaint ESRD on PD Subjective No acute events overnight. No complaints this morning. Yoli feels well. She tolerated PD overnight without complications. UF 500 ml. BP acceptable. She has been out of bed without lightheadedness or dizziness this morning. Yoli hopes she can be discharged home soon. Review of Systems A complete review of systems was performed. Pertinent positives are noted above. All other systems are negative. Vital Signs Last 8 Hrs Date Time Temp Pulse Resp B/P (MAP) Pulse Ox O2 Delivery O2 Flow Rate FiO2 06/02/17 09:34 36.8 82 18 158/72 (100) 96 Room Air 06/02/17 08:10 Room Air 06/02/17 05:40 84 117/65 (82) 88 115/62 (79) 06/02/17 03:30 36.8 78 16 119/69 (86) 94 Room Air Last Recorded Weight Weight (Kilograms): 78.400 Physical Exam General Appearance: WD/WN, no apparent distress Head: normocephalic, atraumatic Eyes: normal inspection, sclerae normal ENT: normal ENT inspection, pharynx normal Neck: supple, no JVD Respiratory/Chest: lungs clear, no respiratory distress, no accessory muscle use Cardiovascular: regular rate, rhythm, no gallop Abdomen/GI: non tender, soft, + pertinent finding (PD catheter with clean exit site) Extremities/Musculoskelatal: normal inspection, no pedal edema, + pertinent finding (LUE AVF palpable cord) Neurologic/Psych: alert, normal mood/affect Family History FH: cancer FH: diabetes mellitus FH: heart disease FH: hypertension FH: kidney disease Negative for CKD / ESRD Social History Smoking Status: Former smoker Drug Use: none Marital Status: Occupation: unemployed . Resides in [place], [place]. Disabled . Former smoker (quit 5 years ago). Laboratory Results Past 24 Hours 06/02/17 08:37 06/02/17 08:37 Test 06/01/17 11:03 06/01/17 16:47 06/01/17 18:33 06/01/17 20:48 Bedside Glucose 112 mg/dl (70-90) 124 mg/dl (70-90) 100 mg/dl (70-90) 192 mg/dl (70-90) Test 06/02/17 05:39 06/02/17 08:37 Bedside Glucose 232 mg/dl (70-90) Red Blood Count 3.46 M/uL (4.2-5.4) Mean Corpuscular Volume 88.7 fL (80-100) Mean Corpuscular Hemoglobin 29.5 pg (25-34) Mean Corpuscular Hemoglobin Concent 33.2 g/dl (32-36) RDW Standard Deviation 49.2 fL (36.4-46.3) RDW Coefficient of Variation 15.1 % (11.5-14.5) Mean Platelet Volume 9.3 fL (7.4-10.4) Anion Gap 8.0 mmol/L (3-11) Est Creatinine Clear Calc Drug Dose 14.1 ml/min Estimated GFR () 11.1 Estimated GFR (Non- 9.6 BUN/Creatinine Ratio 12.6 (10-20) Calcium Level 8.7 mg/dl (8.5-10.1) Magnesium Level 1.7 mg/dl (1.8-2.4) Date/Time Source Procedure Growth Status 06/01/17 20:15 Nasal MRSA DNA Surveillance Screen - Final Specimen Negative for MRSA by DNA Probe Complete Allergies Coded Allergies: Sulfa Antibiotics (Verified Allergy, Intermediate, BLISTERS IN MOUTH, 10/03) Tetracycline (Verified Allergy, Intermediate, BLISTERS IN MOUTH, 10/03/16) Adhesives (Verified Allergy, Mild, RASH, 10/03/16) Doxycycline (Verified Allergy, Unknown, mouth blisters, 10/03/16) Latex1 -Allergic Contact Dermititis (Verified Allergy, Unknown, UNKNOWN, ) PER PREOP ABX ORDER Medications Current Inpatient Medications Medications (Trade) Dose Ordered Sig/April Route Start Time Stop Time Status Last Admin Dose Admin Heparin Sodium (Porcine) (Heparin Sq 5000 Unit/0.5ml) 5,000 unit Q8H SQ 05/31/17 20:30 06/30/17 20:29 06/01/17 20:41 5,000 UNIT Acetaminophen (Tylenol Tab) 650 mg Q4H PRN PO 05/31/17 16:30 06/30/17 16:29 Ondansetron HCl (Zofran Inj) 4 mg Q6H PRN IV 05/31/17 16:30 06/30/17 16:29 Acetaminophen/ Hydrocodone Bitart ([place] 7.5/325 Tab) 1 tab Q4 PRN PO 05/31/17 18:30 06/14/17 18:29 06/02/17 06:30 1 TAB Amlodipine Besylate (Norvasc Tab) 5 mg DAILY PO 06/01/17 09:00 07/01/17 08:59 Future Hold Aspirin (Ecotrin Tab) 81 mg DAILY PO 06/01/17 09:00 07/01/17 08:59 06/02/17 07:51 81 MG Atorvastatin Calcium (Lipitor Tab) 80 mg HS PO 05/31/17 21:00 06/30/17 20:59 06/01/17 20:45 80 MG Carisoprodol (Soma Tab) 350 mg TID PO 05/31/17 21:00 06/30/17 20:59 06/02/17 07:56 350 MG Folic Acid (Folvite Tab) 1 mg DAILY PO 06/01/17 09:00 07/01/17 08:59 06/02/17 07:52 1 MG Furosemide (Lasix Tab) 40 mg DAILY PO 06/01/17 09:00 07/01/17 08:59 Future Hold 06/01/17 07:35 40 MG Hydroxyzine HCl (Vistaril Tab) 25 mg Q6H PO 05/31/17 19:00 06/30/17 18:59 06/02/17 06:27 25 MG Insulin Glargine (Lantus Solostar Pen) 35 units HS SC 05/31/17 21:00 06/30/17 20:59 06/01/17 20:58 35 UNITS Labetalol HCl (Normodyne Tab) 200 mg BID PO 05/31/17 21:00 06/30/17 20:59 Future Hold 05/31/17 21:41 200 MG Lisinopril (Zestril Tab) 40 mg DAILY PO 06/01/17 09:00 07/01/17 08:59 Future Hold Pregabalin (Lyrica Cap) 25 mg BID PO 05/31/17 21:00 06/30/17 20:59 06/02/17 07:56 25 MG Sertraline HCl (Zoloft Tab) 200 mg DAILY PO 06/01/17 09:00 07/01/17 08:59 12/19/17 07:50 200 MG Trazodone HCl (Desyrel Tab) 200 mg HS PO 05/31/17 21:00 06/30/17 20:59 06/01/17 20:45 200 MG bu-Lpzli-Wxxnnrrpdb Acetate (Vitamin E Cap) 400 interunit DAILY PO 06/01/17 09:00 07/01/17 08:59 06/02/17 07:51 400 INTERUNIT Pantoprazole Sodium (Protonix Tab) 40 mg QAM PO 06/01/17 09:00 07/01/17 08:59 06/02/17 07:50 40 MG Fentanyl (Duragesic Patch) 12 mcg Q72H TD 06/02/17 15:00 06/16/17 14:59 Fentanyl (Duragesic Patch) 25 mcg Q72H TD 06/02/17 15:00 06/16/17 14:59 Miscellaneous (Fentanyl Patch Remove & Waste) 1 ea Q3D@1459 N/A 06/02/17 14:59 07/02/17 14:58 Miscellaneous Information (Check Fentanyl Patch Placement) 1 ea QS N/A 06/01/17 00:00 07/01/17 00:00 06/02/17 08:05 1 EA Miscellaneous (Fentanyl Patch Remove & Waste) 1 ea Q3D@1459 N/A 06/02/17 14:59 07/02/17 14:58 Miscellaneous Information (Check Fentanyl Patch Placement) 1 ea QS N/A 06/01/17 00:00 07/01/17 00:00 06/02/17 08:05 1 EA Morphine Sulfate (MoRPHine SULFATE INJ) 4 mg Q4 PRN IV 05/31/17 19:45 06/14/17 19:44 Morphine Sulfate (MoRPHine SULFATE INJ) 2 mg Q4 PRN IV 05/31/17 19:45 06/14/17 19:44 06/02/17 07:57 2 MG Glucose (Glucose 40% Gel) 15-30 GRAMS 15 GRAMS... UD PRN PO 05/31/17 21:15 06/30/17 21:14 Glucose (Glucose Chew Tab) 4-8 Tablets 4 Tabl... UD PRN PO 05/31/17 21:15 06/30/17 21:14 Dextrose (Dextrose 50% 50ML Syringe) 25-50ML OF 50% DW IV FOR... UD PRN IV 05/31/17 21:15 06/30/17 21:14 Glucagon (Glucagon Inj) 1 mg UD PRN SQ 05/31/17 21:15 06/30/17 21:14 Cefazolin Sodium 1000 mg/Syringe 5 ml @ 1.667 mls/ min Q8H IV 06/02/17 00:00 06/03/17 00:00 06/02/17 07:51 1.667 MLS/MIN Insulin Aspart (novoLOG ASPART) SLIDING SCALE G... Q6 SC 06/02/17 06:00 07/02/17 05:59 06/02/17 05:46 3 UNITS Magnesium Sulfate 1 gm/Prmx 100 ml @ 100 mls/hr NOW ONCE IV 06/02/17 10:30 06/02/17 11:29 Impression (1) End stage renal disease (2) Dialysis AV fistula malfunction (3) Hypertension Yoli Rodriguez is a 62-year-old female with ASCVD, DMII, and ESRD due to vascular disease and hypertension. She is on NCCPD. Yoli was admitted with weakness and recurrent falls. She had orthostatic hypotension. LUE AVF was found to have diminished thrill and bruit. Fistulogram was completed yesterday by Dr. Mclaughlin. Recommendations END STAGE RENAL DISEASE: -- NCCPD nightly -- Exit site care per protocol -- Continue 1.5/2.5% dextrosee -- Monitor PRP daily while inpatient VASCULAR ACCESS: -- Fistulogram documented severe stenosis arterial anastomosis -- Vascular follow up today HYPERTENSION: -- Monitor orthostatic bp & pulse QAM -- Continue outpatient bp regimen of labetalol, amlodipine and lisinopril
[2017-06-02] MEDS ORDERED: ALUMINUM/MAGNESIUM/SIMETH (MAALOX MAX) 30 ML UDC PO PRN (10:30)
[2017-06-02] MEDS ORDERED: MAGNESIUM SULFATE 1GM / D5W 1 GM in PREMIXED IN D5W 100 ML IV ONE (10:30)
[2017-06-02] MEDS ORDERED: ALUMINUM/MAGNESIUM/SIMETH (MAALOX MAX) 30 ML UDC PO ONE (10:45)
--- NOTE | 2017-06-02 11:53 | Hospitalist Progress Note ---
Hospitalist Progress Note Date of Service Jun 02, 2017. Subjective Pt evaluation today including: conversation w/ patient, physical exam, chart review, lab review, review of inpatient medication list Pain: None PO Intake: NPO Voiding: no voiding problems Patient complains of feeling fatigued and is very hungry. She is being kept NPO for repair of her AV fistula today with Dr. Mclaughlin. She is otherwise feeling well and denies any complaints. She denies any lightheadedness/dizziness, even while walking the hallway earlier. The patient denies fevers, chills, sweats, chest pain, palpitations, claudication, cough, wheezing, shortness of breath, nausea, vomiting, abdominal pain, dysuria, hematuria, urinary retention, paralysis, weakness, numbness and tingling. Additional Comments: See HPI for pertinent positives and negatives. All other systems reviewed and negative. Objective Vital Signs Date Time Temp Pulse Resp B/P (MAP) Pulse Ox O2 Delivery O2 Flow Rate FiO2 06/02/17 09:34 36.8 82 18 158/72 (100) 96 Room Air 06/02/17 08:10 Room Air 06/02/17 05:40 84 117/65 (82) 88 115/62 (79) 06/02/17 03:30 36.8 78 16 119/69 (86) 94 Room Air 06/02/17 00:00 Room Air 06/01/17 23:55 36.7 85 20 132/71 (91) 96 Room Air 06/01/17 21:59 36.7 73 18 153/68 (96) 97 Room Air 06/01/17 20:21 37.0 114/81 (92) 06/01/17 20:21 36.7 77 18 114/81 (92) 99 Room Air 06/01/17 18:36 36.7 64 18 130/78 (95) 99 Room Air 06/01/17 17:55 36.8 73 18 133/81 (98) 97 Room Air 06/01/17 17:25 36.8 72 18 111/69 (83) 97 Room Air 06/01/17 17:25 97 Room Air 06/01/17 17:25 Room Air 06/01/17 17:05 73 12 114/58 95 Room Air 06/01/17 16:55 36.4 71 13 116/51 94 Room Air 06/01/17 16:45 75 13 103/58 96 Room Air 06/01/17 16:35 36.3 75 17 112/66 98 Room Air 06/01/17 16:27 88 16 105/56 95 Room Air 06/01/17 15:38 36.4 71 16 90/60 97 Room Air 06/01/17 15:38 36.6 78 16 120/73 (89) 99 Room Air 06/01/17 12:23 71 16 90/60 (70) Physical Exam Notes: General appearance: Well-developed, well-nourished, no apparent distress Head: Normocephalic, atraumatic Eyes: Normal inspection, PERRL, EOMI ENT: Normal ENT inspection, hearing grossly normal, pharynx normal Neck: Supple, no JVD, trachea midline Respiratory/Chest: Lungs clear to auscultation, normal breath sounds, no respiratory distress Cardiovascular: Regular rate & rhythm, no gallop, no murmur Abdomen/GI: +PD site in LUQ clean, no surrounding erythema or drainage. Normal bowel sounds, non-tender, soft Extremities/Musculoskeletal: +LUE fistula no thrill. Normal inspection, no calf tenderness, no pedal edema Neurological/Psych: Alert, normal mood/affect, oriented x 3 Skin: Normal color, warm/dry, no rash Laboratory Results Last 24 Hours Test 06/01/17 16:47 06/01/17 18:33 06/01/17 20:48 06/02/17 05:39 Bedside Glucose 124 mg/dl 100 mg/dl 192 mg/dl 232 mg/dl Test 06/02/17 08:37 White Blood Count 5.43 K/uL Red Blood Count 3.46 M/uL Hemoglobin 10.2 g/dL Hematocrit 30.7 % Mean Corpuscular Volume 88.7 fL Mean Corpuscular Hemoglobin 29.5 pg Mean Corpuscular Hemoglobin Concent 33.2 g/dl RDW Standard Deviation 49.2 fL RDW Coefficient of Variation 15.1 % Platelet Count 214 K/uL Mean Platelet Volume 9.3 fL Sodium Level 136 mmol/L Potassium Level 4.3 mmol/L Chloride Level 102 mmol/L Carbon Dioxide Level 26 mmol/L Anion Gap 8.0 mmol/L Blood Urea Nitrogen 58 mg/dl Creatinine 4.60 mg/dl Est Creatinine Clear Calc Drug Dose 14.1 ml/min Estimated GFR () 11.1 Estimated GFR (Non- 9.6 BUN/Creatinine Ratio 12.6 Random Glucose 128 mg/dl Calcium Level 8.7 mg/dl Magnesium Level 1.7 mg/dl Diagnostic Results Immediate Operative Summary Operative Date Jun 01, 2017. Pre-Operative Diagnosis Malfunctioning Fistula Post-Operative Diagnosis Same Procedure(s) Performed Fistulogram, Moderate Sedation from 1613 - 1626. Surgeon Dr. Mclaughlin Machine Assembler Surgeon(s) Dr. Cohn Estimated Blood Loss 0 Findings severe stenosis arterial anastomosis Specimens None Anesthesia Local with sedation Complication(s) None Assessment and Plan 62 y/o female with a history of ESRD on nightly PD, HTN, HLD, DM II, h/o renal artery stenosis, essential tremor, anemia, chronic back pain, anxiety/depression , and GERD who presents with malfunction of left upper extremity AV fistula. LUE AV fistula malfunction--ongoing -Admit to med/surg -Vascular surgery consulted, appreciate recs: Fistulogram revealed severe stenosis of arterial anastomosis -Pt NPO for procedure -AV fistula repair today w/Dr. Mclaughlin -Fistula in place in case of infection from PD for temporary HD Hypotension--resolved -BP remaining stable and WNL -Resume antihypertensives cautiously. Resume Norvasc today ESRD on PD--stable -Nephrology following HTN, HLD--BP improving -Resumed Norvasc 5 mg PO qd -Hold lisinopril 40 mg PO qd, labetalol 200 mg PO BID, Lasix 40 mg PO qd for now -Continue Lipitor 80 mg PO hs DM II--last HgbA1c checked 01/05/17 was 7.4 -Hold glipizide -Lantus 35 units SC hs -Insulin sliding scale -Check BSGs q ac and qhs -HgbA1c 7.5 on 06/01 Chronic back pain -Continue fentanyl patch 37 mcg TD q72h, [place] 7.5/325 PO q4h prn pain and IV morphine prn breakthrough -Continue Lyrica 25 mg PO BID Recent falls--reportedly 8 falls in last week -Secondary to hypotension vs recent hypoglycemia (at [facility])? -PT/OT evaluate and treat -Head CT done at OSH negative for hematoma, or acute disease Anxiety, depression -Continue hydroxyzine 25 mg PO q6h and Zoloft 200 mg PO qd DVT prophylaxis -Heparin 5000 units SC q8h Code Status -Level I, FULL RESUSCITATION STATUS
[2017-06-02] MEDS ORDERED: AMLODIPINE BESYLATE 5 MG TAB PO ONE (12:00)
--- NOTE | 2017-06-02 13:12 | Progress Note ---
Progress Note Date of Service Jun 02, 2017. Progress Note Patient for revision of av fistula left arm and possible angioplasty of vein. I have discussed the risks options and benefits of the procedure with the patient. The patient understands the risks options and benefits and agrees to the procedure. I have examined the patient, reviewed the History & Physical and in the interval since the performance of the History & Physical I have noted the following changes of clinical significance: No changes noted
[2017-06-02] MEDS ORDERED: LIDOCAINE HCL 1% 20 ML VIAL ONE (13:47)
[2017-06-02] MEDS ORDERED: HEPARIN SOD (PORCINE) 1000 UNIT/ML 10 ML VIAL ONE (13:47)
[2017-06-02] MEDS ORDERED: THROMBIN FOR SOLN 20000 UNIT KIT ONE (13:47)
[2017-06-02] MEDS ORDERED: GELATIN SPONGE 12-7MM ONE (13:47)
[2017-06-02] MEDS ORDERED: BUPIVACAINE/EPINEPHRINE 0.5% MPF 1:200,000 30 ML VIAL ONE (13:47)
[2017-06-02] MEDS ORDERED: ONDANSETRON INJ 2 MG/ML 2 ML VIAL IV PRN (14:00)
[2017-06-02] MEDS ORDERED: FENTANYL CITRATE INJ 50 MCG/1 ML 2 ML VIAL IV PRN (14:00)
[2017-06-02] MEDS ORDERED: EpHEDrine SULFATE INJ 50 MG/ML AMP IV PRN (14:00)
[2017-06-02] MEDS ORDERED: ATROPINE SULFATE 0.1 MG/ML 5ML SYR IV PRN (14:00)
[2017-06-02] MEDS ORDERED: PROPOFOL IV EMULSION 10 MG/ML 20 ML VIAL IV ONE ×2 (14:10→14:24)
[2017-06-02] MEDS ORDERED: LIDOCAINE HCL 2% 2 ML VIAL (20MG/ML) ONE (14:10)
[2017-06-02] MEDS ORDERED: RANITIDINE HCL 25 MG/ML INJ ONE (14:10)
[2017-06-02] MEDS ORDERED: FENTANYL CITRATE INJ 50 MCG/1 ML 2 ML VIAL ONE (14:10)
[2017-06-02] MEDS ORDERED: MIDAZOLAM HCL 1 MG/ML 2ML VIAL ONE (14:10)
[2017-06-02] MEDS ORDERED: FENTANYL PATCH REMOVE & WASTE SCH ×2 (14:59)
[2017-06-02] MEDS ORDERED: FENTANYL 12 MCG/HR TDSY TD SCH (15:00)
[2017-06-02] MEDS ORDERED: FENTANYL 25 MCG/HR TDSY TD SCH (15:00)
--- NOTE | 2017-06-02 15:49 | [facility] Post Operative Brief Note ---
Immediate Operative Summary Operative Date Jun 02, 2017. Pre-Operative Diagnosis Malfunction of Arteriovenous fistula, Left arm Post-Operative Diagnosis Same Procedure(s) Performed Revision Left Upper Extremity Arteriovenous Fistula, Balloon Angioplasty of Vein, Fistulogram Surgeon Dr Mclaughlin Mobile Manager Surgeon(s) Arlyn Cohn MD, Tresa Deleon PAC Estimated Blood Loss 10 ml Findings good thrill Specimens None Anesthesia MAC Complication(s) None Disposition Recovery Room / PACU
[2017-06-02] MEDS ORDERED: OPTIRAY 300 IV ONE (15:54)
--- NOTE | 2017-06-02 16:49 | Anesthesiology Progress Note ---
Anesthesia Post Op Note Date & Time Jun 02, 2017 at 16:48 Vital Signs Pain Intensity: 4 Vital Signs Past 12 Hours Date Time Temp Pulse Resp B/P (MAP) Pulse Ox O2 Delivery O2 Flow Rate FiO2 06/02/17 16:35 86 14 115/56 93 Nasal Cannula 2 06/02/17 16:25 91 16 137/63 98 Nasal Cannula 2 06/02/17 16:18 36.3 94 19 125/82 94 Nasal Cannula 2 06/02/17 12:28 95 178/89 (118) 98 Room Air 06/02/17 09:34 36.8 82 18 158/72 (100) 96 Room Air 06/02/17 08:10 Room Air 06/02/17 06:45 36.1 76 16 116/75 (89) 06/02/17 05:40 84 117/65 (82) 88 115/62 (79) Notes Mental Status: alert / awake / arousable, participated in evaluation Pt Amnestic to Procedure: Yes Nausea / Vomiting: adequately controlled Pain: adequately controlled Airway Patency, RR, SpO2: stable & adequate BP & HR: stable & adequate Hydration State: stable & adequate Anesthetic Complications: no major complications apparent
[2017-06-02] MEDS ORDERED: NURSING VERBAL MED ORDER ONE (17:15)
--- NOTE | 2017-06-02 17:55 | OPERATIVE REPORT ---
DATE OF OPERATION: 06/02/2017 PREOPERATIVE DIAGNOSIS: Malfunctioning left upper extremity arteriovenous fistula. POSTOPERATIVE DIAGNOSIS: Same. PROCEDURE: 1. Revision of fistula with reanastomosis, more proximal on the brachial artery. 2. Fistulogram. 3. Angioplasty of venous outflow obstruction with a 6 x 40 mm balloon. SURGEON: Dr. Ash Mclaughlin. FRAME ASSEMBLER: Dr. Nicole Cohn and Tresa Deleon PA-C. ESTIMATED BLOOD LOSS: 50. ANESTHESIA: Local plus conscious sedation. FLUOROSCOPY TIME: 0.7 minutes, milligrays was 7. CONTRAST: 32 mL. COMPLICATIONS: None apparent. CONDITION: Stable to the recovery room. INDICATIONS: Ms. Yoli Rodriguez is a 62-year-old female who previously had a left upper extremity AV fistula placed at an outside facility. This was then subsequently superficialized. She presented without a thrill and interpret thrombosed fistula. She underwent a fistulogram yesterday, which demonstrated patent fistula with major stenosis; however, she had a severe stenosis of her arterial anastomosis with minimal flow through this. She was advised of the risks and benefits of undergoing fistula revision and agreed to undergo the procedure. DESCRIPTION OF PROCEDURE: The patient was brought into the operative suite. She was prepped and draped in the usual fashion. A timeout occurred. An S-shaped incision was made on her upper arm extending from her proximal fistula near the brachial artery. The fistula was exposed and the incision over the brachial artery was deepened. A flap was raised between the vein and artery. The artery was dissected free. This seemed to be good quality and adequate for reanastomosis. The fistula was dissected out as proximal as possible. The proximal fistula was tied off with #2 silk and the fistula was transected. Attention was returned to the artery. The angled DeBakey clamps were applied. Arteriotomy was made. This was extended with Villegas scissors. The transected end of the previous AV fistula was then sewn in an end-to-side fashion. Once the anastomosis was completed, this was inspected for hemostasis. Due to the knowledge that there was previously stenosis in the venous outflow in the upper arm, an 18-gauge Cook needle was used to access the fistula. A wire was inserted. A 6-Turkmen sheath was inserted. A 0.035 Glidewire was then inserted through the fistula. The fistulogram was obtained. This showed 2 areas of focal stenosis around areas of clips. Over the 0.035 wire, a 6 x 40 mm balloon was passed. This was inflated to nominal. On completion, fistulogram showed no further areas of stenosis and the fistula went from being pulsatile to having a good thrill. The sheath was removed. The puncture site was repaired using 6-0 Prolene. The wound was inspected for hemostasis. This was obtained. The wound was closed with 3-0 Vicryl and 4-0 Vicryl and Dermabond. The patient tolerated the procedure well and was transported to the PACU in stable condition. Dr. Ash Mclaughlin was present and scrubbed for the entirety of this case. I attest to the content of the Intraoperative Record and any orders documented therein. Any exception s are noted below.
[2017-06-02] MEDS: TRAZODONE HCL 100 MG TAB PO SCH (21:44)
[2017-06-02] MEDS: ATORVASTATIN 40 MG TAB PO SCH (21:45)
[2017-06-02] MEDS: INSULIN GLARGINE SOLOSTAR 100 UNITS/ML 3 ML PEN SC SCH (21:51)
[2017-06-02] MEDS: OXYCODONE/ACETAMINOPHEN 5-325 TAB PO PRN (22:15)
[2017-06-03] VITALS (7 sets, daily range): BP systolic 116–140; BP diastolic 60–70; PULSE 80–83; TEMP 36.1–36.6; O2SAT 94–98
[2017-06-03] MEDS: CHECK FENTANYL PATCH PLACEMENT SCH ×4 (00:10→08:05)
[2017-06-03] MEDS: MoRPHine SULFATE 2 MG/ML CARP IV PRN ×3 (00:15→12:46)
[2017-06-03] MEDS: hydrOXYzine HCL 25 MG TAB PO SCH ×3 (00:22→13:33)
[2017-06-03] MEDS: HEPARIN SOD 5000 UNIT/0.5 ML CARP SQ SCH ×2 (05:00→13:33)
[2017-06-03] MEDS: ASPIRIN 81 MG ECTAB PO SCH (08:41)
[2017-06-03] MEDS: SERTRALINE HCL 100 MG TAB PO SCH (08:41)
[2017-06-03] MEDS: PANTOprazole SOD 40 MG TAB PO SCH (08:41)
[2017-06-03] MEDS: TOCOPHERYL, DL-ALPHA 400 INTER.UNIT CAP PO SCH (08:42)
[2017-06-03] MEDS: INSULIN ASPART 100 UNITS/ML 3 ML PEN SC SCH ×2 (08:46→13:32)
[2017-06-03] MEDS: CARISOPRODOL 350 MG TAB PO SCH ×2 (08:47→13:33)
[2017-06-03] MEDS: PREGABALIN 25MG CAP PO SCH (08:47)
[2017-06-03] MEDS ORDERED: AMLODIPINE BESYLATE 5 MG TAB PO SCH (09:00)
[2017-06-03 09:10] LABS: HEMOGLOBIN 9.3 g/dL (12.0-16.0); MEAN CELL VOLUME 88.9 fL (80-100); MEAN CORPUSCULAR HEMOGLOBIN 29.5 pg (25-34); MEAN CORPUSCULAR HGB CONC 33.2 g/dl (32-36); MEAN PLATELET VOLUME 9.7 fL (7.4-10.4); PLATELET COUNT 215 K/uL (130-400); RED CELL DISTRIBUTION WIDTH CV 15.1 % (11.5-14.5); WHITE BLOOD COUNT 6.82 K/uL (4.8-10.8)
--- NOTE | 2017-06-03 09:36 | Nephrology Progress Note ---
Nephrology Progress Note Date of Service Jun 03, 2017. Chief Complaint ESRD on PD Subjective No acute events overnight. Some pain in her arm this morning. AVF with good thrill and bruit following balloon angio yesterday. Yoli tolerated PD well overnight without complications. Effluent was clear. No orthostasis or orthostatic changes in vitals noted this morning. She is breathing comfortably and hopes to be discharged home soon. Review of Systems A complete review of systems was performed. Pertinent positives are noted above. All other systems are negative. Vital Signs Last 8 Hrs Date Time Temp Pulse Resp B/P (MAP) Pulse Ox O2 Delivery O2 Flow Rate FiO2 06/03/17 08:20 Room Air 06/03/17 07:15 83 16 121/66 (84) 98 Room Air 06/03/17 07:13 82 16 116/63 (80) 97 Room Air 06/03/17 07:09 36.4 81 16 119/65 (83) 97 Room Air 06/03/17 04:00 36.6 80 16 117/70 (86) 94 Room Air Last Recorded Weight Weight (Kilograms): 81.600 Physical Exam General Appearance: WD/WN, no apparent distress Head: normocephalic, atraumatic Eyes: normal inspection, sclerae normal ENT: normal ENT inspection, pharynx normal Neck: supple, no JVD Respiratory/Chest: lungs clear, no respiratory distress, no accessory muscle use Cardiovascular: regular rate, rhythm, no gallop Abdomen/GI: non tender, soft, + pertinent finding (PD catheter exit site without erythema or drainage) Extremities/Musculoskelatal: normal inspection, no pedal edema, + pertinent finding (AVF with good thrill and bruit) Neurologic/Psych: alert, normal mood/affect Family History FH: cancer FH: diabetes mellitus FH: heart disease FH: hypertension FH: kidney disease Negative for CKD / ESRD Social History Smoking Status: Former smoker Drug Use: none Marital Status: Occupation: unemployed . Resides in [place], [place]. Disabled . Former smoker (quit 5 years ago). Laboratory Results Past 24 Hours 06/03/17 08:57 Test 06/02/17 11:47 06/02/17 16:20 06/02/17 17:12 06/02/17 20:38 Bedside Glucose 121 mg/dl (70-90) 146 mg/dl (70-90) 145 mg/dl (70-90) 241 mg/dl (70-90) Test 06/03/17 08:57 Red Blood Count 3.15 M/uL (4.2-5.4) Mean Corpuscular Volume 88.9 fL (80-100) Mean Corpuscular Hemoglobin 29.5 pg (25-34) Mean Corpuscular Hemoglobin Concent 33.2 g/dl (32-36) RDW Standard Deviation 49.0 fL (36.4-46.3) RDW Coefficient of Variation 15.1 % (11.5-14.5) Mean Platelet Volume 9.7 fL (7.4-10.4) Allergies Coded Allergies: Sulfa Antibiotics (Verified Allergy, Intermediate, BLISTERS IN MOUTH, 10/03) Tetracycline (Verified Allergy, Intermediate, BLISTERS IN MOUTH, 10/03/16) Adhesives (Verified Allergy, Mild, RASH, 10/03/16) Doxycycline (Verified Allergy, Unknown, mouth blisters, 10/03/16) Latex1 -Allergic Contact Dermititis (Verified Allergy, Unknown, UNKNOWN, ) PER PREOP ABX ORDER Medications Current Inpatient Medications Medications (Trade) Dose Ordered Sig/April Route Start Time Stop Time Status Last Admin Dose Admin Heparin Sodium (Porcine) (Heparin Sq 5000 Unit/0.5ml) 5,000 unit Q8H SQ 05/31/17 20:30 06/30/17 20:29 06/03/17 05:00 5,000 UNIT Acetaminophen (Tylenol Tab) 650 mg Q4H PRN PO 05/31/17 16:30 06/30/17 16:29 06/02/17 21:44 650 MG Ondansetron HCl (Zofran Inj) 4 mg Q6H PRN IV 05/31/17 16:30 06/30/17 16:29 Aspirin (Ecotrin Tab) 81 mg DAILY PO 06/01/17 09:00 07/01/17 08:59 06/03/17 08:41 81 MG Atorvastatin Calcium (Lipitor Tab) 80 mg HS PO 05/31/17 21:00 06/30/17 20:59 06/02/17 21:45 80 MG Carisoprodol (Soma Tab) 350 mg TID PO 05/31/17 21:00 06/30/17 20:59 12/20/17 08:47 350 MG Folic Acid (Folvite Tab) 1 mg DAILY PO 06/01/17 09:00 07/01/17 08:59 06/03/17 08:42 1 MG Furosemide (Lasix Tab) 40 mg DAILY PO 06/01/17 09:00 07/01/17 08:59 Future Hold 06/01/17 07:35 40 MG Hydroxyzine HCl (Vistaril Tab) 25 mg Q6H PO 05/31/17 19:00 06/30/17 18:59 06/03/17 07:06 25 MG Insulin Glargine (Lantus Solostar Pen) 35 units HS SC 05/31/17 21:00 06/30/17 20:59 06/02/17 21:51 35 UNITS Labetalol HCl (Normodyne Tab) 200 mg BID PO 05/31/17 21:00 06/30/17 20:59 Future Hold 05/31/17 21:41 200 MG Lisinopril (Zestril Tab) 40 mg DAILY PO 06/01/17 09:00 07/01/17 08:59 Future Hold Pregabalin (Lyrica Cap) 25 mg BID PO 05/31/17 21:00 06/30/17 20:59 06/03/17 08:47 25 MG Sertraline HCl (Zoloft Tab) 200 mg DAILY PO 06/01/17 09:00 07/01/17 08:59 06/03/17 08:41 200 MG Trazodone HCl (Desyrel Tab) 200 mg HS PO 05/31/17 21:00 06/30/17 20:59 06/02/17 21:44 200 MG qh-Tcfmd-Aoszkwkmix Acetate (Vitamin E Cap) 400 interunit DAILY PO 06/01/17 09:00 07/01/17 08:59 06/03/17 08:42 400 INTERUNIT Pantoprazole Sodium (Protonix Tab) 40 mg QAM PO 06/01/17 09:00 07/01/17 08:59 06/03/17 08:41 40 MG Fentanyl (Duragesic Patch) 12 mcg Q72H TD 06/02/17 15:00 06/16/17 14:59 06/02/17 17:42 12 MCG Fentanyl (Duragesic Patch) 25 mcg Q72H TD 06/02/17 15:00 06/16/17 14:59 06/02/17 17:42 25 MCG Miscellaneous (Fentanyl Patch Remove & Waste) 1 ea Q3D@1459 N/A 06/02/17 14:59 07/02/17 14:58 06/02/17 14:59 1 EA Miscellaneous Information (Check Fentanyl Patch Placement) 1 ea QS N/A 06/01/17 00:00 07/01/17 00:00 06/03/17 08:05 1 EA Miscellaneous (Fentanyl Patch Remove & Waste) 1 ea Q3D@1459 N/A 06/02/17 14:59 07/02/17 14:58 06/02/17 14:59 1 EA Miscellaneous Information (Check Fentanyl Patch Placement) 1 ea QS N/A 06/01/17 00:00 07/01/17 00:00 06/03/17 08:05 1 EA Morphine Sulfate (MoRPHine SULFATE INJ) 4 mg Q4 PRN IV 05/31/17 19:45 06/14/17 19:44 Morphine Sulfate (MoRPHine SULFATE INJ) 2 mg Q4 PRN IV 05/31/17 19:45 06/14/17 19:44 06/03/17 08:02 2 MG Glucose (Glucose 40% Gel) 15-30 GRAMS 15 GRAMS... UD PRN PO 05/31/17 21:15 06/30/17 21:14 Glucose (Glucose Chew Tab) 4-8 Tablets 4 Tabl... UD PRN PO 05/31/17 21:15 06/30/17 21:14 Dextrose (Dextrose 50% 50ML Syringe) 25-50ML OF 50% DW IV FOR... UD PRN IV 05/31/17 21:15 06/30/17 21:14 Glucagon (Glucagon Inj) 1 mg UD PRN SQ 05/31/17 21:15 06/30/17 21:14 Al Hydrox/Mg Hydrox/Simethicone (Maalox Max Susp) 30 ml Q6H PRN PO 06/02/17 10:30 07/02/17 10:29 Oxycodone/ Acetaminophen (Percocet 5-325mg Tab) 1 tab Q4H PRN PO 06/02/17 16:00 06/16/17 15:59 12/19/17 22:15 1 TAB Insulin Aspart (novoLOG ASPART) SLIDING SCALE G... ACHS SC 06/02/17 17:15 07/02/17 17:14 06/03/17 08:46 4 UNITS Amlodipine Besylate (Norvasc Tab) 2.5 mg DAILY PO 06/03/17 09:00 07/01/17 08:59 06/03/17 08:50 2.5 MG Impression (1) End stage renal disease (2) Dialysis AV fistula malfunction (3) Hypertension Yoli Rodriguez is a 62-year-old female with ASCVD, DMII, and ESRD due to vascular disease and hypertension. She is on NCCPD. Yoli was admitted with weakness and recurrent falls. She had orthostatic hypotension. LUE AVF was found to have diminished thrill and bruit. Fistulogram with balloon yesterday by Dr. Mclaughlin. Recommendations END STAGE RENAL DISEASE: -- NCCPD nightly -- Exit site care per protocol -- Continue 1.5/2.5% dextrose -- Monitor PRP daily while inpatient VASCULAR ACCESS: -- Fistulogram documented severe stenosis arterial anastomosis -- Vascular follow up today HYPERTENSION: -- Monitor orthostatic bp & pulse QAM -- BP remains acceptable while weaning home antihypertensives including stopping lisinopril and amlodipine -- Should be able to discontinue amlodipine 2.5 mg -- May restart a dose of lisinopril as needed for elevated BP
[2017-06-03 10:01] LABS: CALCIUM 8.7 mg/dl (8.5-10.1); CREATININE 3.85 mg/dl (0.60-1.20); POTASSIUM 4.2 mmol/L (3.5-5.1)
[2017-06-03] MEDS ORDERED: INSDGIPEN SC (11:00)
[2017-06-03] MEDS ORDERED: [UNRECOGNIZED DRUG - CODE] SC (11:00)
[2017-06-03] MEDS: OXYCODONE/ACETAMINOPHEN 5-325 TAB PO PRN (11:54)
--- NOTE | 2017-06-03 12:49 | Discharge Instructions ---
Discharge Instructions Date of Service Jun 03, 2017. Admission Reason for Admission: Av Fistula Failure Discharge Discharge Diagnosis / Problem: AV Fistula malfunction, hypotension Discharge Goals Goal(s): Decrease discomfort, Improve function, Diagnostic testing, Therapeutic intervention Activity Recommendations Activity Limitations: resume your previous activity (as tolerated) Lifting Limitations: no more than 10 pounds (left arm) . Instructions / Follow-Up Instructions / Follow-Up You were admitted to the hospital from [facility] after your left arm AV fistula was found to be malfunctioning without any bruit or thrill. You had also recently had frequent falls, low blood pressure and low blood sugar. You were evaluated by the vascular surgeon, Dr. Mclaughlin. A fistulogram revealed severe narrowing of your fistula. This was then surgically repaired. Your blood pressure and blood sugars also improved. You are now medically stable for discharge. Recommendations: *Please check your blood pressure at home 1-2 times a day and record the readings. Bring your blood pressure log to your next appointment with your primary care provider. *Check your blood sugar before meals and before bedtime. *If you become lightheaded or dizzy again, check your blood pressure and blood sugar. *You may shower. Please cleanse the fistula site gently with soap and water. Gently pat dry. You do not need a dressing for the area. *Feel for the thrill of your left arm fistula daily. Medications: *Your home blood pressure medications, lisinopril and labetalol, have been stopped for the time being as your blood pressure has been very labile ( sometimes very low and other times higher). Your diuretic (water pill) Lasix has also been stopped. Please hold these medications until you follow up with your primary care provider, and record your blood pressure readings as above. *Stop glipizide as this may be contributing to your blood sugars dropping too low. *Your Tresiba has been changed back to Lantus. Please take 35 units at bedtime. Continue your Novolog sliding scale. Please also record your blood sugars to show to your primary care provider. *Continue your home medications as prescribed. Follow up: *You will be scheduled to follow up with your primary care provider shortly after discharge. You will need to follow up on both your blood pressure and blood sugars as the changes above have been made. *You will also be scheduled to follow up with vascular surgery in about 2 weeks to check on the fistula. *Please follow up with nephrology as scheduled. Please seek medical attention if you experience fevers, chills, sweats, dizziness/lightheadedness, loss of consciousness, fall, chest pain, shortness of breath, nausea, vomiting, numbness or tingling, or if you experience increased redness, swelling, pain or drainage at your surgical site. Current Hospital Diet Patient's current hospital diet: Diabetes Type 2 Diet, Renal Diet Discharge Diet Recommended Diet: Diabetes Type 2 Diet, Renal Diet Procedures Procedures Performed: Revision Left Upper Extremity Arteriovenous Fistula, Balloon Angioplasty of Vein, Fistulogram Pending Studies Studies pending at discharge: no Laboratory Results Hemoglobin A1c Test 06/01/17 06:17 Range/Units Estimated Average Glucose 169 mg/dl Hemoglobin A1c 7.5 H 4.5-5.6 % Medical Emergencies . Who to Call and When: Medical Emergencies: If at any time you feel your situation is an emergency, please call 911 immediately. . Non-Emergent Contact Non-Emergency issues call your: Primary Care Provider, Ditching Machine Operator, Surgeon Call Non-Emergent contact if: you have a fever, your pain is not controlled, your pain is worsening, your pain is unusual for you, your pain is concerning you, wound has increased drainage, wound has increased redness, wound has increased pain, you have any medication questions . Past History Medical & Surgical History: (1) Dialysis AV fistula malfunction . "Provider Documentation" section prepared by Anh Montoya. . VTE Core Measure Inpt VTE Proph given/why not?: Unfractionated heparin SQ
--- NOTE | 2017-06-03 13:07 | Anesthesiology Progress Note ---
Anesthesia Post Op Note Date & Time Jun 03, 2017 at 13:07 Vital Signs Pain Intensity: 7.0 Vital Signs Past 12 Hours Date Time Temp Pulse Resp B/P (MAP) Pulse Ox O2 Delivery O2 Flow Rate FiO2 06/03/17 10:37 140/60 (86) 06/03/17 08:20 Room Air 06/03/17 07:15 83 16 121/66 (84) 98 Room Air 06/03/17 07:13 82 16 116/63 (80) 97 Room Air 06/03/17 07:09 36.4 81 16 119/65 (83) 97 Room Air 06/03/17 04:00 36.6 80 16 117/70 (86) 94 Room Air Notes Mental Status: alert / awake / arousable, participated in evaluation Pt Amnestic to Procedure: Yes Nausea / Vomiting: adequately controlled Pain: adequately controlled Airway Patency, RR, SpO2: stable & adequate BP & HR: stable & adequate Hydration State: stable & adequate Anesthetic Complications: no major complications apparent
--- NOTE | 2017-06-03 13:28 | Discharge Summary ---
Discharge Summary Date of Service Jun 03, 2017. Discharge Summary Admission Date: May 31, 2017 at 15:25 Discharge Date: Jun 03, 2017 Discharge Disposition: Home Principal Diagnosis: AV fistula malfunction Problems/Secondary Diagnoses: Hypotension/labile blood pressure, ESRD on nightly PD, HTN, HLD, DM II, h/o renal artery stenosis, essential tremor, anemia, chronic back pain, anxiety/ depression, GERD Immunizations: Have You Had Influenza Vaccine: Yes Influenza Vaccine Date: Jun 14, 2013 History of Tetanus Vaccine?: Yes Tetanus Immunization Date: Jun 14, 2013 History of Pneumococcal: No History of Hepatitis B Vaccine: No Procedures: Immediate Operative Summary Operative Date Jun 01, 2017. Pre-Operative Diagnosis Malfunctioning Fistula Post-Operative Diagnosis Same Procedure(s) Performed Fistulogram, Moderate Sedation from 1613 - 1626. Surgeon Dr. Mclaughlin Locksmith Helper Surgeon(s) Dr. Cohn Estimated Blood Loss 0 Findings severe stenosis arterial anastomosis Specimens None Anesthesia Local with sedation Complication(s) None Immediate Operative Summary Operative Date Jun 02, 2017. Pre-Operative Diagnosis Malfunction of Arteriovenous fistula, Left arm Post-Operative Diagnosis Same Procedure(s) Performed Revision Left Upper Extremity Arteriovenous Fistula, Balloon Angioplasty of Vein, Fistulogram Surgeon Dr Mclaughlin Locksmith Helper Surgeon(s) Arlyn Cohn MD, Tresa Deleon PAC Estimated Blood Loss 10 ml Findings good thrill Specimens None Anesthesia MAC Complication(s) None Disposition Recovery Room / PACU Consultations: Vascular surgery Nephrology Medication Reconciliation New Medications: Insulin Pen Needle (Bd Pen Needle/Ultrafine/2) 1 Mis Mis BOX SC HS, #1 Continued Medications: Aspirin (Aspirin) 81 Mg Tab 1 TAB PO DAILY, #90 Atorvastatin (Lipitor) 80 Mg Tab 80 MG PO HS, TAB B-Complex W/ C & Folic Acid (Renal Vitamin 0.8 mg) 1 Tab Tab 1 TAB PO DAILY Carisoprodol (Soma) 350 Mg Tab 350 MG PO TID, TAB Ergocalciferol (Vitamin D) 50,000 Interunit Cap 1 TAB PO [id number], #6 1 TAB EVERY 2 WEEKS X 16 WEEKS THEN 1 MONTHLY Folic Acid (Folic Acid) 1 Mg Tab 1 TAB PO DAILY, #30 Hydrocodone/Acetaminophen 7.5MG/325MG ([place] 7.5MG/325MG) Tab 2 TABS PO Q6H, TAB PRN PAIN Hydroxyzine HCl (Hydroxyzine HCl) 25 Mg Tab 1 TAB PO Q6H, #30 Insulin Aspart (Novolog Flexpen) 100 Units/Ml Inj 1 DOSE SC, #15 SLIDING SCALE Insulin Glargine (Lantus Solostar) 100 Unit/Ml Inj 35 UNITS SC HS for 30 Days, #30 DOSE (This prescription has been renewed) Omeprazole (Prilosec) 40 Mg Cap 1 TAB PO DAILY, #30 Pregabalin (Lyrica) 25 Mg Cap 25 MG PO BID, CAP Probiotic Product (Probiotic) 1 Cap Cap 1 CAP PO DAILY Sertraline HCl (Sertraline HCl) 100 Mg Tab 2 TAB PO DAILY, #60 Trazodone Hcl (Trazodone) 100 Mg Tab 200 MG PO HS PRN Vitamin E (Vitamin E 400 Iu) 400 Unit Cap 400 INTER.UNIT PO DAILY, CAP Discontinued Medications: Furosemide (Furosemide) 40 Mg Tab 1 TAB PO DAILY, #30 Glipizide (Glipizide Er) 5 Mg Tab 1 TAB PO BID Labetalol HCl (Labetalol HCl) 100 Mg Tab 1 TAB PO BID, #540 Lisinopril (Lisinopril) 40 Mg Tab 1 TAB PO BID, #30 Discharge Exam The patient reports feeling well but is a bit sore at her left upper extremity fistula site following surgery. She states that she has some intermittent numbness/tingling in her left fingers but denies any loss of range of motion or strength. She denies any lightheadedness or dizziness. The patient denies fevers, chills, sweats, chest pain, palpitations, claudication, cough, wheezing , shortness of breath, nausea, vomiting, abdominal pain, dysuria, hematuria, urinary retention, paralysis, weakness. Constitutional: No fever, No chills, No sweats Eyes: No worsening of vision, No eye pain, No diplopia ENT: No hearing loss, No nasal symptoms, No trouble swallowing Respiratory: No cough, No wheezing, No shortness of breath Cardiovascular: No chest pain, No claudication, No palpitations Abdomen: No pain, No nausea, No vomiting Musculoskeletal: +Chronic back pain. No muscle pain, No swelling Genitourinary - Female: No dysuria, No urinary retention, No hematuria Neurologic: +Left fingers tingly. No paralysis, No weakness Integumentary: No rash, No itch, No color change General appearance: Well-developed, well-nourished, no apparent distress Head: Normocephalic, atraumatic Eyes: Normal inspection, PERRL, EOMI ENT: Normal ENT inspection, hearing grossly normal, pharynx normal Neck: Supple, no JVD, trachea midline Respiratory/Chest: Lungs clear to auscultation, normal breath sounds, no respiratory distress Cardiovascular: Regular rate & rhythm, no gallop, no murmur Abdomen/GI: +PD site in LUQ clean, no surrounding erythema or drainage. Normal bowel sounds, non-tender, soft Extremities/Musculoskeletal: +LUE fistula now with good thrill. Surgical site closed with Dermabond. Normal cap refill in left fingers. Palpable left radial pulse. No calf tenderness, no pedal edema Neurological/Psych: +Decreased sensation left fingers compared to right. Alert , normal mood/affect, oriented x 3 Skin: Normal color, warm/dry, no rash Hospital Course 62 y/o female with a history of ESRD on nightly PD, HTN, HLD, DM II, h/o renal artery stenosis, essential tremor, anemia, chronic back pain, anxiety/depression , and GERD who presents with malfunction of left upper extremity AV fistula. LUE AV fistula malfunction--ongoing -Admit to med/surg -Vascular surgery consulted, appreciate recs: S/p fistula revision w/ reanastamosis, balloon angioplasty of vein and fistulogram. Spoke with Tresa Deleon over phone. Pt can shower, surgical site does not need dressing. F/ u with vascular in 2 weeks. -Recommend weight lift restriction of 10 pounds in left arm until f/u with vascular -Fistula in place in case of infection from PD for temporary HD Hypotension--BP has been labile, at times as low as 80/50, other times hypertensive -Pt had been on amlodipine previously but this had been stopped as outpt prior to arrival. Will remove from home meds -Continue to hold lisinopril and labetalol for now until follow up with PCP. Instructed pt to check her BP at home daily and record readings ESRD on PD--stable -Nephrology following HTN, HLD--BP labile -Hold lisinopril 40 mg PO qd, labetalol 200 mg PO BID, Lasix 40 mg PO qd for now until f/u with PCP -Continue Lipitor 80 mg PO hs DM II, recent hypoglycemia could be contributing to her falls--last HgbA1c checked 01/05/17 was 7.4 -Hold glipizide. Stop this at discharge as can cause hypoglycemia -Lantus 35 units SC hs. Pt had been on higher dose of Tresiba, may have contribute to hypoglycemia. Lantus pens/needles scripts provided at discharge -Insulin sliding scale -Check BSGs q ac and qhs. Instructed pt to check her sugars q ac and qhs at home and record readings for PCP -HgbA1c 7.5 on 06/01 Chronic back pain -Continue [place] 7.5/325 PO q4h prn pain and IV morphine prn breakthrough -Continue Lyrica 25 mg PO BID Recent falls--reportedly 8 falls in last week -Secondary to hypotension vs recent hypoglycemia (at [facility]) -PT/OT evaluate and treat: recommend return home, at baseline functioning -Head CT done at OSH negative for hematoma, or acute disease -Instructed to check BP and blood sugar when dizzy/lightheaded Anxiety, depression -Continue hydroxyzine 25 mg PO q6h and Zoloft 200 mg PO qd DVT prophylaxis -Heparin 5000 units SC q8h Code Status -Level I, FULL RESUSCITATION STATUS Total Time Spent: Greater than 30 minutes This includes examination of the patient, discharge planning, medication reconciliation, and communication with other providers. Discharge Instructions Please refer to the electronic Patient Visit Report (Discharge Instructions) for additional information. Additional Copies To Nando Meredith M.D.
== END 2017-06-03 14:05 | disposition home or self-care (01) | DRG 252 ==
LOC: C.MS2W 15:25 → ENRESERV 06-01 17:06 → C.MSW 06-01 17:37
PROVIDERS: ADMIT Internal Medicine; ATTEND Hospitalist
PROC: B51WZZA Fluoroscopy of Dialysis Shunt/Fistula, Guidance (ICD-10-PCS; principal; 2017-06-02 09:15)
PROC: 057Y3ZZ Dilation of Upper Vein, Percutaneous Approach (ICD-10-PCS; principal; 2017-06-02 09:15)
PROC: 031 Upper Arteries, Bypass (ICD-10-PCS; principal; 2017-06-02 09:15)
DX: T82.858A Stenosis of other vascular prosthetic devices, implants and grafts, initial encounter (principal); N18.6 End stage renal disease; I12.0 Hypertensive chronic kidney disease with stage 5 chronic kidney disease or end stage renal disease; Z99.2 Dependence on renal dialysis; F32.9 Major depressive disorder, single episode, unspecified; E11.21 Type 2 diabetes mellitus with diabetic nephropathy; Z83.3 Family history of diabetes mellitus; Z87.891 Personal history of nicotine dependence; Z84.1 Family history of disorders of kidney and ureter; Z88.2 Allergy status to sulfonamides; R25.1 Tremor, unspecified; K21.9 Gastro-esophageal reflux disease without esophagitis; Y83.2 Surgical operation with anastomosis, bypass or graft as the cause of abnormal reaction of the patient, or of later complication, without mention of misadventure at the time of the procedure; Y92.019 Unspecified place in single-family (private) house as the place of occurrence of the external cause; I95.9 Hypotension, unspecified